=== PATIENT | female | born 1985 | race Caucasian/White ===

== ENCOUNTER → 2020-06-17 10:09 | Outpatient (BNVA) | payer BC, SELFPAY | PROVIDERS: Family Provider Family Medicine; PCP Family Medicine; Visit Provider Internal Medicine Rheumatology | DX: R76.8 Other specified abnormal immunological findings in serum (principal); I73.00 Raynaud's syndrome without gangrene; M19.90 Unspecified osteoarthritis, unspecified site; Z11.1 Encounter for screening for respiratory tuberculosis; Z11.59 Encounter for screening for other viral diseases; Z79.899 Other long term (current) drug therapy; Z87.891 Personal history of nicotine dependence | CPT/HCPCS: 99204 ==

== ENCOUNTER 2020-06-17 11:41 | Outpatient (CLI) | payer BC, SELFPAY ==
--- NOTE | 2020-06-17 11:56 | XR_ITS ---
WS: [id number] Exam: XR chest 2V* [id number] Date/Time of Exam: 06/17/2020 12:10 PM Reason For Exam: R76.8 - Other specified abnormal immunological findings in serum Comparison 08/31/2018. Findings: The lungs are clear and fully expanded. Costophrenic angles are sharp. No infiltrates. Bronchovascula r relief appears normal. Cardiac silhouette is unremarkable. Bony elements are intact. XR/XR chest 2V* [id number] IMPRESSION: Unremarkable chest radiograph.
--- NOTE | 2020-06-17 11:56 | XR_ITS ---
WS: [id number] Exam: XR foot LT min 3V* [id number] Date/Time of Exam: 06/17/2020 12:10 PM Reason For Exam: R76.8 - Other specified abnormal immunological findings in serum Findings: The foot was examined in multiple views and reveals no fractures or displacements of bone. No bony a nomalies are noted. The bony elements are in adequate alignment. The joint spaces are smooth and eq uidistant. XR/XR foot LT min 3V* [id number] IMPRESSION: Negative left foot.
--- NOTE | 2020-06-17 11:56 | XR_ITS ---
WS: [id number] Exam: XR foot RT min 3V* [id number] Date/Time of Exam: 06/17/2020 12:10 PM Reason For Exam: R76.8 - Other specified abnormal immunological findings in serum Findings: The foot was examined in multiple views and reveals no fractures or displacements of bone. No bony a nomalies are noted. The bony elements are in adequate alignment. The joint spaces are smooth and eq uidistant. XR/XR foot RT min 3V* [id number] IMPRESSION: Negative right foot.
--- NOTE | 2020-06-17 11:56 | XR_ITS ---
WS: [id number] Exam: XR hand LT min 3V* [id number] Date/Time of Exam: 06/17/2020 12:10 PM Reason For Exam: R76.8 - Other specified abnormal immunological findings in serum Exam: XR hand LT min 3V* [id number] Date/Time of Exam: 06/17/2020 12:10 PM Reason For Exam: R76.8 - Other specified abnormal immunological findings in serum Findings: No fractures, soft tissue swelling, or unusual calcifications are noted. The hand shows normal bony alignment. There is no irregularity of the bony architecture. XR/XR hand LT min 3V* [id number] IMPRESSION: Normal left hand.
--- NOTE | 2020-06-17 11:56 | XR_ITS ---
WS: [id number] Exam: XR hand RT min 3V* [id number] Date/Time of Exam: 06/17/2020 12:10 PM Reason For Exam: R76.8 - Other specified abnormal immunological findings in serum No fracture or dislocation. There is degenerative narrowing of the IP joints. Endosteal sclerosis not ed in the middle phalanx of the fourth finger. Normal soft tissues. XR/XR hand RT min 3V* [id number] IMPRESSION: 1. Degenerative narrowing of the IP joints and the first MP joint. 2. No fracture or other significant finding.
[2020-06-17 12:54] LABS: Basophils % 0.4 %; Eosinophils # 0.2 10^3/uL (0.0-0.8); Eosinophils % 2.1 %; Hematocrit 43.8 % (37.0-47.0); Hemoglobin 14.6 g/dL (11.5-15.3); Lymphocytes # 2.9 10^3/uL (0.8-4.8); Lymphocytes % 37.7 %; Mean Corpuscular HGB Conc 33.3 g/dL (30.0-36.0); Mean Platelet Volume 9.6 fL (7.4-10.4); Monocytes # 0.3 10^3/uL (0.2-0.9); Monocytes % 4.4 %; Neutrophils # 4.27 10^3/uL (1.8-7.7); Nucleated Red Blood Cells % 0 %; Platelet Count 305 10^3/cmm (130-400); Red Blood Count 4.71 10^6/uL (4.1-5.3); Red Cell Distribution Width 12.2 % (12.1-15.1); White Blood Count 7.8 10^3/uL (4.0-10.0)
[2020-06-17 13:31] LABS: 25 Hydroxy Vitamin D 24 ng/mL (30-100); Alanine Aminotransferase 9 U/L (0-33); Albumin Level 4.4 g/dL (3.5-5.2); Alkaline Phosphatase 89 IU/L (35-105); Aspartate Amino Transferase 16 U/L (0-32); Globulin 3.1 g/dL (1.3-4.6); Glomerular Filtration Rate 94.2 mL/min (90-130); Thyroid Stimulating Hormone 1.61 uIU/mL (0.27-4.20); Total Bilirubin 0.5 mg/dL (0.15-1.2); Total Protein 7.5 g/dL (6.6-8.7)
[2020-06-17 14:22] LABS: Bilirubin Urine Neg (Negative); Ketones Urine Negative (Negative); Urine Appearance Clear (CLEAR); Urine Color Yellow (Yellow); Urobilinogen Urine Norm (Negative)
[2020-06-17 14:30] LABS: Bacteria Urine TRACE /hpf; RBC Urine 0-4 /hpf (0-2)
[2020-06-17 14:33] LABS: Urine Creatinine 40 mg/dL (28-217); Urine Protein Random 4 mg/dL
[2020-06-17 14:39] LABS: Add Urine Culture? No; Blood Urine 2+ (Negative); Glucose Urine UA Norm (Normal); Leukocyte Esterase Urine Negative (Negative); Nitrate Urine Negative (Negative); Protein Urine Neg (Negative); pH Urine 5 (5-7)
[2020-06-17 15:06] LABS: Erythrocyte Sedimentation Rate 6 mm/hr (0-15)
[2020-06-17 15:29] LABS: Complement C3 123 mg/dL (90-180); Free T4 Free Thyroxine 1.58 ng/dL (0.82-1.77)
[2020-06-17 15:45] LABS: Hepatitis B Core AB, Total Non-Reactive (Nonreactive); Hepatitis B Surface Antigen Non-Reactive (Nonreactive); Hepatitis C Virus Antibody Non-Reactive (Nonreactive)
[2020-06-18 14:03] LABS: CENTROMERE B ANTIBODY <1.0 NEG AI (<1.0 NEG); JO-1 ANTIBODY <1.0 NEG AI (<1.0 NEG); RNP ANTIBODY <1.0 NEG AI (<1.0 NEG); SCL-70 ANTIBODY <1.0 NEG AI (<1.0 NEG); SJOGREN'S ANTIBODY (SS-A) <1.0 NEG AI (<1.0 NEG); SM ANTIBODY <1.0 NEG AI (<1.0 NEG); SS-B <1.0 NEG AI (<1.0 NEG)
[2020-06-18 14:34] LABS: COMPLEMENT, TOTAL (CH50) >60 U/mL (31-60)
[2020-06-18 14:48] LABS: COMPLEMENT COMPONENT C3C 127 mg/dL (83-193); COMPLEMENT COMPONENT C4C 26 mg/dL (15-57); THYROID PEROXIDASE ANTIBODIES <1 IU/mL (<9)
[2020-06-19 13:57] LABS: Quantiferon Mitogen >10.00 IU/mL; Quantiferon Nil 0.03 IU/mL; Quantiferon TB Gold NEGATIVE (NEGATIVE)
[2020-06-20 14:29] LABS: ANA PATTERN Nuclear, Speckled; ANA SCREEN, IFA POSITIVE (NEGATIVE); ANA TITER 1:40 titer
[2020-06-21 00:39] LABS: DNA AB (DS) CRITHIDIA,IFA NEGATIVE (NEGATIVE)
== END 2020-06-17 11:42 | disposition home or self-care (01) ==
LOC: LAB 11:49 → RAD 11:49
PROVIDERS: PCP Family Medicine; Visit Provider Internal Medicine Rheumatology
DX: R76.8 Other specified abnormal immunological findings in serum (principal); M19.90 Unspecified osteoarthritis, unspecified site; Z79.899 Other long term (current) drug therapy
CPT/HCPCS: 36415; 71046; 73130; 73630; 80076; 81001; 82306; 82565; 82570; 84156; 84439; 84443; 85025; 85651; 86140; 86160; 86431; 86480; 86704; 86803; 87340

== ENCOUNTER → 2020-07-30 12:55 | Outpatient (BNVA) | payer BC, SELFPAY | PROVIDERS: PCP Family Medicine; Visit Provider Internal Medicine Rheumatology | DX: R76.8 Other specified abnormal immunological findings in serum (principal); M19.90 Unspecified osteoarthritis, unspecified site; Z79.899 Other long term (current) drug therapy; I73.00 Raynaud's syndrome without gangrene; R63.5 Abnormal weight gain; Z68.29 Body mass index [BMI] 29.0-29.9, adult; Z87.891 Personal history of nicotine dependence | CPT/HCPCS: 99214 ==

== ENCOUNTER 2022-12-13 07:29 | Outpatient (CLI) | payer BC, SELFPAY ==
--- NOTE | 2022-12-13 07:45 | US_ITS ---
WS: [id number] THYROID ULTRASOUND HISTORY: thyroid mass COMPARISON: None available. Right lobe: 1.6 cm x 1.6 cm x 4.8 cm (w x ap x l). Volume: 6.4 cm3. Normal size and echotexture. No significant are dominant nodules are present. Left lobe: 1.6 cm x 0.9 cm x 4.4 cm (w x ap x l). Volume: 3.2 cm3. Normal size and echotexture. No significant or dominant nodules are present. Benign LEFT submandibular lymph node. Isthmus: 0.2 cm. US/US thyroid [id number] IMPRESSION: Normal thyroid ultrasound.
== END 2022-12-13 07:30 | disposition home or self-care (01) ==
PROVIDERS: PCP Family Medicine; Visit Provider Emergency Medicine
DX: E07.9 Disorder of thyroid, unspecified (principal)
CPT/HCPCS: 76536

== ENCOUNTER → 2023-02-15 10:11 | Outpatient (BNVA) | payer BC, SELFPAY | PROVIDERS: PCP Family Medicine; Visit Provider Family Medicine | DX: N89.8 Other specified noninflammatory disorders of vagina (principal); Z72.51 High risk heterosexual behavior; B37.9 Candidiasis, unspecified | CPT/HCPCS: 80053; 80061; 81000; 84439; 84443; 85025; 87491; 87591; 87806 ==

== ENCOUNTER 2023-12-03 16:58 | Emergency (ER) | payer BC, SELFPAY ==
[2023-12-03 17:07] VITALS: BP 117/83; PULSE 93; RESP 17; TEMP 37.1; O2SAT 98; BMI 32.9
--- NOTE | 2023-12-03 19:11 | USR_ITS ---
PROCEDURE INFORMATION: Exam: US Abdomen, Limited; Right Upper Quadrant Exam date and time: 12/03/2023 7:23 PM Age: 38 years old Clinical indication: Abdominal pain; Localized; Right upper quadrant TECHNIQUE: Imaging protocol: Real time ultrasound of the abdomen with image documentation. Limited exam focused on the right upper quadrant. COMPARISON: No relevant prior studies available. FINDINGS: Liver: Normal. No masses. Gallbladder: Normal. No gallstones. Gallbladder wall is upper limits of normal in thickness measuring 3 mm. No pericholecystic fluid collections are seen. Biliary ducts: Normal. No stones. No dilation. Pancreas: Visualized pancreas is unremarkable. Right kidney: Normal. No mass. No hydronephrosis. US/US gall bladder [id number] IMPRESSION: No acute findings.
--- NOTE | 2023-12-03 19:11 | ECG_ITS ---
[facility] Test Date: 2023-12-03 Pat Name: Tripp Villavicencio Department: Room: Gender: Female Community Health Counselor: : 1985 Requested By: Benitez Oleary Order Number: [id number] Steiner MD: Ky Colon M.D. Measurements Intervals [place] Rate: 73 P: 33 ME: 183 QRS: 77 QRSD: 86 T: 21 QT: 383 QTc: 422 Interpretive Statements SINUS RHYTHM WITH MARKED SINUS ARRHYTHMIA NONSPECIFIC T-WAVE ABNORMALITY No previous ECG available for comparison Electronically Signed On 12-04-2023 16:13:49 CDT by Ky Colon M.D. [id number]
--- NOTE | 2023-12-03 19:11 | XRR_ITS ---
PROCEDURE INFORMATION: Exam: XR Chest Exam date and time: 12/03/2023 7:37 PM Age: 38 years old Clinical indication: Shortness of breath; TECHNIQUE: Imaging protocol: Radiologic exam of the chest. Views: 1 view. COMPARISON: CR XR chest 2V* [id number] 06/17/2020 12:20 PM FINDINGS: Lungs: Unremarkable. No consolidation. Pleural spaces: Unremarkable. No pleural effusion. No pneumothorax. Heart/Mediastinum: Unremarkable. No cardiomegaly. Bones/joints: Unremarkable. XR/XR chest 1V portable [id number] IMPRESSION: No acute findings.
[2023-12-03 19:15] VITALS: BP 135/72; PULSE 85; O2SAT 99
[2023-12-03 19:19] LABS: Basophils % 0.4 %; Eosinophils # 0.2 10^3/uL (0.0-0.8); Eosinophils % 1.8 %; Hematocrit 43.6 % (36-47); Lymphocytes # 3.2 10^3/uL (0.8-4.8); Lymphocytes % 30.8 %; Mean Corpuscular HGB Conc 33.7 g/dL (30-55); Mean Corpuscular Hemoglobin 30.9 pg (27-33); Mean Corpuscular Volume 91.8 fl (85-98); Mean Platelet Volume 9.7 fL (7.4-10.4); Monocytes # 0.5 10^3/uL (0.2-0.9); Monocytes % 4.5 %; Neutrophils # 6.38 10^3/uL (1.8-7.7); Nucleated Red Blood Cells % 0 %; Platelet Count 297 10^3/cmm (157-399); Red Blood Count 4.75 10^6/uL (3.85-5.65); Red Cell Distribution Width 12.2 % (12.1-15.1); White Blood Count 10.27 10^3/uL (3.29-11.43)
--- NOTE | 2023-12-03 19:39 | ED_ITS ---
Documented by User: [email or web address] Pena 12/03/23 23:49 HPI - Abdominal Pain 2 General: Chief Complaint: Abdominal Pain Stated Complaint: abd pain Time Seen by Provider: 12/03/23 18:58 Source: patient Mode of arrival: ambulatory Limitations: no limitations History of Present Illness: Patient is a 2-year-old female presenting to the emergency department for evaluation of right upper quadrant abdominal pain over the past couple days. Patient states she was seated at her desk when pain began, and does radiate to her back and left upper quadrant. She has never had this pain before, states it is only relieved when she stands up. She has not taken anything for the pain as she states she does not like to take medications. She does report a history of rheumatoid arthritis, not currently on any Biologics. She does note some associated nausea but states she has not vomited. She denies any fever or chills. She additionally does not report any changes in bowel habits, stating her last bowel movement was yesterday and was normal. She is also reporting some shortness of breath. Pain currently at this time is rated to be a 7/10. No other symptoms or concerning historical factors reported. MD elicited complaint: abdominal pain Onset (ago): day(s) Pain Consistency: constant Location: RUQ Severity: moderate Radiation: LUQ and back Relieving factors: other (Standing) Associated Symptoms: Reports nausea; Denies bloating, change in stool character, chills, constipation, diarrhea, dysuria, fever(s), hematochezia and vomiting Review of Systems 2 General: Reports: 10 or more systems reviewed and unremarkable except in HPI and below Const: Denies: fever(s), chills, change in appetite, change in weight or diaphoresis ENMT: Denies: throat pain or hoarseness Card: Denies: chest pain, palpitations or lightheadedness Resp: Reports: dyspnea; Denies: productive cough or wheezing GI: Reports: abdominal pain and nausea; Denies: vomiting, diarrhea, constipation, bloating, change in stool character or hematochezia : Denies: flank pain, difficulty voiding, dysuria, urinary frequency or urinary urgency Musc: Reports: back pain; Denies: neck pain Skin/Breast: Denies: rash or new lesions Neuro: Denies: headache(s) or dizziness PFSH ED 2 PFSH: Medical History High risk medication use Raynaud's disease without gangrene Inflammatory arthritis Positive DEION (antinuclear antibody) Cervical dysplasia Surgical History History of tubal ligation Social History Smoking and tobacco/nicotine status: current every day tobacco/nicotine user cigarettes Packs smoked per day: 0.5 Years cigarettes smoked: 26 Quit status (tobacco/nicotine): has tried quititng Number of times tried to quit tobacco: 1 Second hand smoke exposure: No Alcohol intake: never Substance/Drug Use: never Lives independently: Yes Marital status: Number of children: 3 Current occupational status: employed Current occupation: [employer] Special wanda needs: No Agree to transfusion: Yes Physical Exam 2 Const: COMMON NORMALS: no acute distress, average body habitus, patient oriented x3, no limitations, healthy appearing, alert and well nourished G ENERAL APPEARANCE: cooperative and comfortable ORIENTATION/CONSCIOUSNESS: Yes awake HENMT: COMMON NORMALS: normocephalic, atraumatic, hearing grossly normal bilaterally, external ears normal, Normal external nose present, Normal nasal mucous membranes and turbinates present and moist oral mucous membranes HEAD & SCALP: normocephalic and atraumatic NOSE: Normal external nose present and Normal nasal mucous membranes and turbinates present EXTERNAL EAR: Yes external ears normal Eye: COMMON NORMALS: Equal, round and reactive pupils present, EOMs intact bilaterally, conjunctivae normal and normal visual michael by confrontation C ONJUNCTIVA: Yes conjunctivae normal PUPIL: Yes Equal, round and reactive pupils present Neck/C-Spine: COMMON NORMALS: full ROM, supple, no meningeal signs and no JVD Resp: COMMON NORMALS: normal respiratory effort, No retractions, No use of accessory muscles and clear to auscultation bilaterally AUSCULTATION: clear to auscultation bilaterally, no crackles, no rales, no rhonchi and no wheezes Cardio: COMMON NORMALS: no JVD, regular rate, regular rhythm, S1 normal heart sound present, S2 normal heart sound present, No gallops present (Cardio), No clicks present (Cardio), No murmurs present (Cardio), No rub (Cardio) and Peripheral pulses 2+ throughout RATE: regular rate RHYTHM: regular rhythm HEART SOUNDS: S1 normal heart sound present and S2 normal heart sound present PERIPHERAL PULSES: Peripheral pulses 2+ throughout GI: COMMON NORMALS: Normal to inspection, nondistended, normoactive bowel sounds present, Soft to palpation, No hepatosplenomegaly present and no masses AUSCULTATION: Yes normoactive bowel sounds PALPATION: Yes Soft to palpation, Yes Tenderness to palpation present (GI) Details: RUQ, No Guarding due to palpation present (GI), No Rigid due to palpation and Yes No hepatosplenomegaly present RECTAL EXAM: deferred : COMMON NORMALS: Yes no CVA tenderness BLADDER/KIDNEY EXAM: Yes no CVA tenderness Back/Pelvis: COMMON NORMALS: no CVA tenderness Extremity: COMMON NORMALS: normal to inspection and full ROM Neuro: COMMON NORMALS: patient oriented x3, moves all extremities, no focal motor deficits and no sensory deficits noted SENSORIUM/ORIENTATION: Yes alert MENINGEAL SIGNS: Yes no meningeal signs Psych: COMMON NORMALS: mental status grossly normal, cooperative and speech normal SPEECH: Yes normal speech Skin: COMMON NORMALS: no rashes or lesions noted GENERAL SKIN EXAM: no rashes or lesions noted Course 2 Vital Signs: Vital signs: Vital Signs Temperature 98.7 F 12/03/23 17:07 Pulse Rate 85 12/03/23 20:45 Respiratory Rate 17 12/03/23 20:45 Blood Pressure 134/82 12/03/23 20:45 Pulse Oximetry 97 12/03/23 20:45 Oxygen Delivery Me thod Room Air 12/03/23 20:45 MDM - Abdominal Pain Medical Decision Making Patient presented with right upper quadrant pain over the past few days, extending to the back and left upper quadrant. No history of issues with the gallbladder, no previous surgical history with the abdomen other than having her tubes tied. Was noting some shortness of breath as well along with nausea and vomiting. Her blood work was all unremarkable, including negative CBC, CMP, , and urinalysis. Initial ultrasound was obtained did not demonstrate any findings concerning the gallbladder. Additionally chest x-ray and EKG were obtained for her shortness of breath, both of which were negative. Her EKG showed sinus rhythm rate [address] segment changes. CT abdomen pelvis was obtained to further evaluate for her pain, this was also negative. She denied any medicines for pain or nausea, she states she does not like taking medicines. She does have a history of rheumatoid arthritis, and potential etiology may include an autoimmune process versus abdominal wall strain versus abdominal contusion. Because of his negative workup I will point her towards primary care for further outpatient management. She does note that her pain is improved simply during her ED stay. Vitals have remained normal throughout the ED course and I have no concern for an acute abdomen at this time. Patient will be discharged home with strict return precautions. Lab Data 12/03/23 19:10 12/03/23 19:10 Labs/Radiology: Radiology Impressions Chest X-Ray 12/03/23 19:11 IMPRESSION: No acute findings. Gallbladder Ultrasound 12/03/23 19:11 IMPRESSION: No acute findings. Abdomen/Pelvis CT 12/03/23 19:46 IMPRESSION: No acute findings. Laboratory Results WBC 10.27 10^3/uL (3.29-11.43) 12/03/23 19:10 RBC 4.75 10^6/uL (3.85-5.65) 12/03/23 19:10 Hgb 14.70 g/dL (11.27-16.99) 12/03/23 19:10 Hct 43.6 % (36-47) 12/03/23 19:10 MCV 91.8 fl (85-98) 12/03/23 19:10 MCH 30.9 pg (27-33) 12/03/23 19:10 MCHC 33.7 g/dL (30-55) 12/03/23 19:10 RDW 12.2 % (12.1-15.1) 12/03/23 19:10 Plt Count 297 10^3/cmm (157-399) 12/03/23 19:10 MPV 9.7 fL (7.4-10.4) 12/03/23 19:10 Neut % (Auto) 62.0 % 12/03/23 19:10 Lymph % (Auto) 30.8 % 12/03/23 19:10 [place] % (Auto) 4.5 % 12/03/23 19:10 Eos % (Auto) 1.8 % 12/03/23 19:10 Baso % (Auto) 0.4 % 12/03/23 19:10 Neut # (Auto) 6.38 10^3/uL (1.8-7.7) 12/03/23 19:10 Lymph # (Auto) 3.2 10^3/uL (0.8-4.8) 12/03/23 19:10 [place] # (Auto) 0.5 10^3/uL (0.2-0.9) 12/03/23 19:10 Eos # (Auto) 0.2 10^3/uL (0.0-0.8) 12/03/23 19:10 Baso # (Auto) 0.0 10^3/uL (0.0-0.1) 12/03/23 19:10 Nucleated RBC % (auto) 0 % 12/03/23 19:10 Nucleated RBCs # 0.0 /100WBC 12/03/23 19:10 Sodium 138 mmol/L (136-145) 12/03/23 19:10 Potassium 3.9 mmol/L (3.5-5.1) 12/03/23 19:10 Chloride 103 mmol/L (98-107) 12/03/23 19:10 Carbon Dioxide 25 mmol/L (22-29) 12/03/23 19:10 Anion Gap 13.9 (5-19) 12/03/23 19:10 BUN 10 mg/dL (6-20) 12/03/23 19:10 Creatinine 0.8 mg/dL (0.5-0.9) 12/03/23 19:10 GFR Calculation 79.4 mL/min (90-130) L 12/03/23 19:10 Glucose 89 mg/dL (65-115) 12/03/23 19:10 Calculated Osmolality 285 mOsm/kg (285-295) 12/03/23 19:10 Calcium 8.8 mg/dL (8.5-10.5) 12/03/23 19:10 Total Bilirubin 0.2 mg/dL (0.15-1.2) 12/03/23 19:10 AST 17 U/L (0-32) 12/03/23 19:10 ALT 16 U/L (0-33) 12/03/23 19:10 Alkaline Phosphatase 107 U/L (35-105) H 12/03/23 19:10 Total Protein 7.2 g/dL (6.6-8.7) 12/03/23 19:10 Albumin 4.3 g/dL (3.5-5.2) 12/03/23 19:10 Globulin 2.9 g/dL (1.3-4.6) 12/03/23 19:10 Lipase 18 U/L (13-60) 12/03/23 19:10 HCG, Qual Negative (Negative) 12/03/23 19:10 Urine Color Yellow (Yellow) 12/03/23 18:56 Urine Appearance Clear (CLEAR) 12/03/23 18:56 Urine pH 7 (5-7) 12/03/23 18:56 Ur Specific [place] 1.000 (1.005-1.030) L 12/03/23 18:56 Urine Protein Neg (Negative) 12/03/23 18:56 Urine Glucose (UA) Norm (Normal) 12/03/23 18:56 Urine Ketones Negative (Negative) 12/03/23 18:56 Urine Blood Trace (Negative) H 12/03/23 18:56 Urine Nitrate Negative (Negative) 12/03/23 18:56 Urine Bilirubin Neg (Negative) 12/03/23 18:56 Urine Urobilinogen Neg mg/dL (Negative) 12/03/23 18:56 Ur Leukocyte Esterase Negative (Negative) 12/03/23 18:56 Urine RBC 0-4 /hpf (0-2) H 12/03/23 18:56 Urine WBC 0-4 /hpf (0-5) H 12/03/23 18:56 Ur Squamous Epith Cells 5-10 /hpf (0-5) H 12/03/23 18:56 Amorphous Sediment Not Reportable 12/03/23 18:56 Urine Bacteria 2+ /hpf (NONE) H 12/03/23 18:56 All radiology interpretation(s) finalized by discharge Discharge Plan Discharge Patient Disposition: Home Clinical Impression: Right upper quadrant abdominal pain Condition: Stable Prescriptions: No Action famotidine [Pepcid] 40 mg tablet 40 mg PO BID Qty: 60 0RF fluconazole 150 mg tablet 150 mg PO Q3D Qty: 2 0RF Rx Instructions: take one tablet now, next tablet in 72hrs metronidazole 500 mg tablet 500 mg PO BID 7 Days Qty: 14 0RF Discharge Orders: Discharge ED (Routine); Ordered 12/03/23 Ordered By: Benitez Hernandez Discharge Diet: Usual diet Discharge Activity: Increase activity as tolerated Patient Instructions: Abdominal Pain (ED), Opioid Safety, Pain Management Activity Restrictions/Additional Instructions: Please follow-up with primary care as discussed for further evaluation. Take Tylenol and ibuprofen at home for any pain. Return if you develop any new or concerning symptoms or other signs of illness. Coding Level of Care Code ED Regulatory Agency Director for Chg Fwd Documented by User: Willard Person DO 12/04/23 04:31 HPI - Abdominal Pain 2 General: Chief Complaint: Abdominal Pain Stated Complaint: abd pain Time Seen by Provider: 12/03/23 18:58 PFSH ED 2 PFSH: Medical History High risk medication use Raynaud's disease without gangrene Inflammatory arthritis Positive DEION (antinuclear antibody) Cervical dysplasia Surgical History History of tubal ligation Social History Smoking and tobacco/nicotine status: current every day tobacco/nicotine user cigarettes Packs smoked per day: 0.5 Years cigarettes smoked: 26 Quit status (tobacco/nicotine): has tried quititng Number of times tried to quit tobacco: 1 Second hand smoke exposure: No Alcohol intake: never Substance/Drug Use: never Lives independently: Yes Marital status: Number of children: 3 Current occupational status: employed Current occupation: [employer] Special wanda needs: No Agree to transfusion: Yes Course 2 Vital Signs: Vital signs: Vital Signs Temperature 98.7 F 12/03/23 17:07 Pulse Rate 85 12/03/23 20:45 Respiratory Rate 17 12/03/23 20:45 Blood Pressure 134/82 12/03/23 20:45 Pulse Oximetry 97 12/03/23 20:45 Oxygen Delivery Me thod Room Air 12/03/23 20:45 MDM - Abdominal Pain Medical Decision Making Patient presented with right upper quadrant pain over the past few days, extending to the back and left upper quadrant. No history of issues with the gallbladder, no previous surgical history with the abdomen other than having her tubes tied. Was noting some shortness of breath as well along with nausea and vomiting. Her blood work was all unremarkable, including negative CBC, CMP, , and urinalysis. Initial ultrasound was obtained did not demonstrate any findings concerning the gallbladder. Additionally chest x-ray and EKG were obtained for her shortness of breath, both of which were negative. Her EKG showed sinus rhythm rate [address] segment changes. CT abdomen pelvis was obtained to further evaluate for her pain, this was also negative. She denied any medicines for pain or nausea, she states she does not like taking medicines. She does have a history of rheumatoid arthritis, and potential etiology may include an autoimmune process versus abdominal wall strain versus abdominal contusion. Because of his negative workup I will point her towards primary care for further outpatient management. She does note that her pain is improved simply during her ED stay. Vitals have remained normal throughout the ED course and I have no concern for an acute abdomen at this time. Patient will be discharged home with strict return precautions. This patient was originally seen by Mr. David PA-C.? I agree with his history, evaluation, and treatment. Lab Data 12/03/23 19:10 12/03/23 19:10 Labs/Radiology: Radiology Impressions Chest X-Ray 12/03/23 19:11 IMPRESSION: No acute findings. Gallbladder Ultrasound 12/03/23 19:11 IMPRESSION: No acute findings. Abdomen/Pelvis CT 12/03/23 19:46 IMPRESSION: No acute findings. Laboratory Results WBC 10.27 10^3/uL (3.29-11.43) 12/03/23 19:10 RBC 4.75 10^6/uL (3.85-5.65) 12/03/23 19:10 Hgb 14.70 g/dL (11.27-16.99) 12/03/23 19:10 Hct 43.6 % (36-47) 12/03/23 19:10 MCV 91.8 fl (85-98) 12/03/23 19:10 MCH 30.9 pg (27-33) 12/03/23 19:10 MCHC 33.7 g/dL (30-55) 12/03/23 19:10 RDW 12.2 % (12.1-15.1) 12/03/23 19:10 Plt Count 297 10^3/cmm (157-399) 12/03/23 19:10 MPV 9.7 fL (7.4-10.4) 12/03/23 19:10 Neut % (Auto) 62.0 % 12/03/23 19:10 Lymph % (Auto) 30.8 % 12/03/23 19:10 [place] % (Auto) 4.5 % 12/03/23 19:10 Eos % (Auto) 1.8 % 12/03/23 19:10 Baso % (Auto) 0.4 % 12/03/23 19:10 Neut # (Auto) 6.38 10^3/uL (1.8-7.7) 12/03/23 19:10 Lymph # (Auto) 3.2 10^3/uL (0.8-4.8) 12/03/23 19:10 [place] # (Auto) 0.5 10^3/uL (0.2-0.9) 12/03/23 19:10 Eos # (Auto) 0.2 10^3/uL (0.0-0.8) 12/03/23 19:10 Baso # (Auto) 0.0 10^3/uL (0.0-0.1) 12/03/23 19:10 Nucleated RBC % (auto) 0 % 12/03/23 19:10 Nucleated RBCs # 0.0 /100WBC 12/03/23 19:10 Sodium 138 mmol/L (136-145) 12/03/23 19:10 Potassium 3.9 mmol/L (3.5-5.1) 12/03/23 19:10 Chloride 103 mmol/L (98-107) 12/03/23 19:10 Carbon Dioxide 25 mmol/L (22-29) 12/03/23 19:10 Anion Gap 13.9 (5-19) 12/03/23 19:10 BUN 10 mg/dL (6-20) 12/03/23 19:10 Creatinine 0.8 mg/dL (0.5-0.9) 12/03/23 19:10 GFR Calculation 79.4 mL/min (90-130) L 12/03/23 19:10 Glucose 89 mg/dL (65-115) 12/03/23 19:10 Calculated Osmolality 285 mOsm/kg (285-295) 12/03/23 19:10 Calcium 8.8 mg/dL (8.5-10.5) 12/03/23 19:10 Total Bilirubin 0.2 mg/dL (0.15-1.2) 12/03/23 19:10 AST 17 U/L (0-32) 12/03/23 19:10 ALT 16 U/L (0-33) 12/03/23 19:10 Alkaline Phosphatase 107 U/L (35-105) H 12/03/23 19:10 Total Protein 7.2 g/dL (6.6-8.7) 12/03/23 19:10 Albumin 4.3 g/dL (3.5-5.2) 12/03/23 19:10 Globulin 2.9 g/dL (1.3-4.6) 12/03/23 19:10 Lipase 18 U/L (13-60) 12/03/23 19:10 HCG, Qual Negative (Negative) 12/03/23 19:10 Urine Color Yellow (Yellow) 12/03/23 18:56 Urine Appearance Clear (CLEAR) 12/03/23 18:56 Urine pH 7 (5-7) 12/03/23 18:56 Ur Specific [place] 1.000 (1.005-1.030) L 12/03/23 18:56 Urine Protein Neg (Negative) 12/03/23 18:56 Urine Glucose (UA) Norm (Normal) 12/03/23 18:56 Urine Ketones Negative (Negative) 12/03/23 18:56 Urine Blood Trace (Negative) H 12/03/23 18:56 Urine Nitrate Negative (Negative) 12/03/23 18:56 Urine Bilirubin Neg (Negative) 12/03/23 18:56 Urine Urobilinogen Neg mg/dL (Negative) 12/03/23 18:56 Ur Leukocyte Esterase Negative (Negative) 12/03/23 18:56 Urine RBC 0-4 /hpf (0-2) H 12/03/23 18:56 Urine WBC 0-4 /hpf (0-5) H 12/03/23 18:56 Ur Squamous Epith Cells 5-10 /hpf (0-5) H 12/03/23 18:56 Amorphous Sediment Not Reportable 12/03/23 18:56 Urine Bacteria 2+ /hpf (NONE) H 12/03/23 18:56 Discharge Plan Discharge Patient Disposition: Home Clinical Impression: Right upper quadrant abdominal pain Condition: Stable Prescriptions: No Action famotidine [Pepcid] 40 mg tablet 40 mg PO BID Qty: 60 0RF fluconazole 150 mg tablet 150 mg PO Q3D Qty: 2 0RF Rx Instructions: take one tablet now, next tablet in 72hrs metronidazole 500 mg tablet 500 mg PO BID 7 Days Qty: 14 0RF Discharge Orders: Discharge ED (Routine); Ordered 12/03/23 Ordered By: Benitez Hernandez Discharge Diet: Usual diet Discharge Activity: Increase activity as tolerated Patient Instructions: Abdominal Pain (ED), Opioid Safety, Pain Management Activity Restrictions/Additional Instructions: Please follow-up with primary care as discussed for further evaluation. Take Tylenol and ibuprofen at home for any pain. Return if you develop any new or concerning symptoms or other signs of illness. Coding Level of Care Code ED Regulatory Agency Director for Brent Zapata
[2023-12-03 19:43] LABS: Alanine Aminotransferase 16 U/L (0-33); Albumin Level 4.3 g/dL (3.5-5.2); Alkaline Phosphatase 107 U/L (35-105); Anion Gap 13.9 (5-19); Aspartate Amino Transferase 17 U/L (0-32); Blood Urea Nitrogen 10 mg/dL (6-20); Calcium 8.8 mg/dL (8.5-10.5); Carbon Dioxide 25 mmol/L (22-29); Chloride 103 mmol/L (98-107); Creatinine Clr Calc Pharmacy 96.1964; Globulin 2.9 g/dL (1.3-4.6); Glomerular Filtration Rate 79.4 mL/min (90-130); Glucose 89 mg/dL (65-115); Lipase 18 U/L (13-60); Osmolality Calculated 285 mOsm/kg (285-295); Potassium 3.9 mmol/L (3.5-5.1); Sodium 138 mmol/L (136-145); Total Bilirubin 0.2 mg/dL (0.15-1.2); Total Protein 7.2 g/dL (6.6-8.7)
[2023-12-03 19:44] LABS: Add Urine Microscopic? YES; Bacteria Urine 2+ /hpf; Bilirubin Urine Neg (Negative); Blood Urine Trace (Negative); Glucose Urine UA Norm (Normal); Ketones Urine Negative (Negative); Leukocyte Esterase Urine Negative (Negative); Nitrate Urine Negative (Negative); Protein Urine Neg (Negative); RBC Urine 0-4 /hpf (0-2); Urine Appearance Clear (CLEAR); Urine Color Yellow (Yellow); Urobilinogen Urine Neg (Negative); WBC Urine 0-4 /hpf (0-5); pH Urine 7 (5-7)
[2023-12-03 19:44] LABS: HCG, Serum Qual Negative (Negative)
--- NOTE | 2023-12-03 19:46 | CTR_ITS ---
PROCEDURE INFORMATION: Exam: CT Abdomen And Pelvis With Contrast Exam date and time: 12/03/2023 7:53 PM Age: 38 years old Clinical indication: Abdominal pain; Localized; Right upper quadrant (ruq); Prior surgery; Surgery date: 6+ months; Surgery type: Tubal; Patient HX: C/O ruq pain; Additional info: Ruq pain/neg US TECHNIQUE: Imaging protocol: Computed tomography of the abdomen and pelvis with contrast. Radiation optimization: All CT scans at this facility use at least one of these dose optimization techniques: automated exposure control; mA and/or kV adjustment per patient size (includes targeted exams where dose is matched to clinical indication); or iterative reconstruction. Contrast material: OMNI 350; Contrast volume: 100 ml; Contrast route: INTRAVENOUS (IV); COMPARISON: US gall bladder [id number] 12/03/2023 7:23 PM RADIATION DOSE METRICS: Total DLP (mGy-cm): 802.41 FINDINGS: Diaphragm: Small hiatal hernia. Liver: Normal. No mass. Gallbladder and biliary ducts: Normal. No calcified stones. No ductal dilation. Pancreas: Normal. No ductal dilation. Spleen: Normal. No splenomegaly. Adrenal glands: Normal. No mass. Kidneys and ureters: Normal. No hydronephrosis. Stomach and bowel: There is diverticulosis of the colon without evidence of diverticulitis. Appendix: A normal appendix is identified. Intraperitoneal space: There is a physiologic amount of free fluid in the pelvis. Vasculature: Unremarkable. No abdominal aortic aneurysm. Lymph nodes: Unremarkable. No enlarged lymph nodes. Urinary bladder: Unremarkable as visualized. Reproductive: Bilateral ovarian follicles. Bones/joints: Unremarkable. No acute fracture. Soft tissues: Unremarkable. CT/CT abdomen pelvis w con* [id number] IMPRESSION: No acute findings.
[2023-12-03] MEDS: iohexol 350 mg/mL 500 mL Btl (per mL) IV (19:55)
[2023-12-03 20:00] VITALS: BP 128/74; PULSE 86; O2SAT 97
[2023-12-03 20:45] VITALS: BP 134/82; PULSE 85; RESP 17; O2SAT 97
== END 2023-12-03 20:48 | disposition home or self-care (01) ==
PROVIDERS: Emergency Provider Physician Assistant
DX: R10.11 Right upper quadrant pain (principal); F17.210 Nicotine dependence, cigarettes, uncomplicated
CPT/HCPCS: 71045; 74177; 76705; 80053; 81001; 83690; 84703; 85025; 93005; 99285; Q9967

== ENCOUNTER → 2024-11-15 08:29 | Outpatient (BNVA) | payer BC, SELFPAY | DX: F41.1 Generalized anxiety disorder (principal) | CPT/HCPCS: 80053; 84443; 85025 ==

== ENCOUNTER 2025-03-25 20:02 | Emergency (ER) | payer BC, SELFPAY ==
--- NOTE | 2025-03-25 20:08 | ECG_ITS ---
[facility] Test Date: 2025-03-25 Pat Name: Tripp Villavicencio Department: Room: Gender: Female It Systems Administrator: : 1985 Requested By: Ashley Manzo Order Number: [id number] Obdulia MD: Shannan Torres M.D. Measurements Intervals [place] Rate: 80 P: 60 KS: 201 QRS: 52 QRSD: 83 T: 41 QT: 357 QTc: 412 Interpretive Statements SINUS RHYTHM WITH SINUS ARRHYTHMIA NONSPECIFIC T-WAVE ABNORMALITY Compared to ECG 12/03/2023 19:49:57 No significant changes Electronically Signed On 03-26-2025 22:04:21 AUDIT INTERN by Shannan Torres M.D. [email or web address]
--- OUTSIDE RECORDS SUMMARY | 2025-03-25 20:09 | XMS_ITS | Encounter Summary ---
Author Organization [facility] Address [address] [place] [address] Care Team Providers Care Experimental Electronics Developer Name Role Phone Arun Beltrán MD Primary Care Provider +1 -[phone] Encounter Details Date Type Department Care Team (Latest Contact Info) Description 12/31/1999 [facility] [place] [address] [phone] Christina Mcintyre NO ADDRESS ON FILE Sleep disturbance, unspecified (Primary Dx) Social History Tobacco Use Types Packs/Day Years Used Date Smoking Tobacco: Never Assessed Comments Unknown Sex and Gender Information Value Date Recorded Sex Assigned at Not on file 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
--- OUTSIDE RECORDS SUMMARY | 2025-03-25 20:09 | XMS_ITS | Encounter Summary ---
Author Organization [facility] Address [address] [place] [address] Care Team Providers Care Clinical Services Professional Name Role Phone Arun Beltrán MD Primary Care Provider +1 -[phone] Encounter Details Date Type Department Care Team (Latest Contact Info) Description 11/21/2001 Outpatient Historical [facility] Medicine [place] [address] [address] Yannick Coleman DO NO ADDRESS ON FILE ACUTE PHARYNGITIS (Primary Dx) Social History Tobacco Use Types Packs/Day Years Used Date Smoking Tobacco: Never Assessed Comments Unknown Sex and Gender Information Value Date Recorded Sex Assigned at Not on file Legal Sex Female 5:[address] SUPERVISOR OF ENGINES Gender Identity Not on file Sexual Orientation Not on file documented as of this encounter Plan of Treatment Not on file documented as of this encounter Visit Diagnoses Diagnosis Acute pharyngitis- Primary documented in this encounter Care Teams Clinical Services Professional Relationship Specialty Start Date End Date Arun Beltrán MD [address] [phone] PCP - General Family Practice 04/28/18 documented as of this encounter
--- OUTSIDE RECORDS SUMMARY | 2025-03-25 20:09 | XMS_ITS | Encounter Summary ---
Author Organization [facility] Address [address] [place] [address] Care Team Providers Care Pipefitter Welder Name Role Phone Arun Beltrán MD Primary Care Provider +1 -[phone] Encounter Details Date Type Department Care Team (Latest Contact Info) Description 11/26/1999 Outpatient Historical [facility] Medicine [place] [address] [address] Christina Mcintyre NO ADDRESS ON FILE Other specified hypoglycemia (Primary Dx); Other specified anemias; Other malaise and fatigue Social History Tobacco Use Types Packs/Day Years Used Date Smoking Tobacco: Never Assessed Comments Unknown Sex and Gender Information Value Date Recorded Sex Assigned at Not on file 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
--- OUTSIDE RECORDS SUMMARY | 2025-03-25 20:09 | XMS_ITS | Encounter Summary ---
Author Organization [facility] Address [address] [place] [address] Care Team Providers Care Customer Complaint Service Supervisor Name Role Phone Arun Beltrán MD Primary Care Provider +1 [phone] Encounter Details Date Type Department Care Team (Latest Contact Info) Description 06/28/[address] 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
--- OUTSIDE RECORDS SUMMARY | 2025-03-25 20:09 | XMS_ITS | Encounter Summary ---
Author Organization [facility] Address [address] [place] [address] Care Team Providers Care Lead Supply Worker Name Role Phone Arun Beltrán MD Primary Care Provider +1 -[phone] Encounter Details Date Type Department Care Team (Latest Contact Info) Description 11/27/2002 Outpatient Historical [facility] Medicine- [address] [address] Peter Watson MD [address] [phone] SUPERVIS OTHER NORMAL PREG (Primary Dx) Social History Tobacco Use Types Packs/Day Years Used Date Smoking Tobacco: Never Assessed Comments Unknown Sex and Gender Information Value Date Recorded Sex Assigned at Not on file 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
--- OUTSIDE RECORDS SUMMARY | 2025-03-25 20:09 | XMS_ITS | Encounter Summary ---
Author Organization [facility] Address [address] [place] [address] Care Team Providers Care Etcher Aircraft Name Role Phone Arun Beltrán MD Primary Care Provider +1 -[phone] Encounter Details Date Type Department Care Team (Latest Contact Info) Description 11/21/2002 Outpatient Historical [facility] [address] [address] Peter Watson MD [address] [phone] ESOPHAGEAL REFLUX (Primary Dx); HEMATEMESIS Social History Tobacco Use Types Packs/Day Years Used Date Smoking Tobacco: Never Assessed Comments Unknown Sex and Gender Information Value Date Recorded Sex Assigned at Not on file 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
--- OUTSIDE RECORDS SUMMARY | 2025-03-25 20:09 | XMS_ITS | Encounter Summary ---
Author Organization [facility] Address [address] [place] [address] Care Team Providers Care Supervisor Molding Name Role Phone Arun Beltrán MD Primary Care Provider +1 -[phone] Encounter Details Date Type Department Care Team (Latest Contact Info) Description 12/12/2002 Outpatient Historical [facility] Medicine- [address] [address] Peter Watson MD [address] [phone] SUPERVIS OTHER NORMAL PREG (Primary Dx) Social History Tobacco Use Types Packs/Day Years Used Date Smoking Tobacco: Never Assessed Comments Unknown Sex and Gender Information Value Date Recorded Sex Assigned at Not on file 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
--- OUTSIDE RECORDS SUMMARY | 2025-03-25 20:09 | XMS_ITS | Encounter Summary ---
Author Organization [facility] Address [address] [place] [address] Care Team Providers Care Deputy Director Of Finance Name Role Phone Arun Beltrán MD Primary Care Provider +1 -[phone] Encounter Details Date Type Department Care Team (Latest Contact Info) Description 05/05/1999 Outpatient Historical [facility] Medicine [place] [address] [address] Yannick Coleman DO NO ADDRESS ON FILE Dysfunct eustachian tube (Primary Dx); Acute pharyngitis; Allergic rhinitis, cause unspecified Social History Tobacco Use Types Packs/Day Years Used Date Smoking Tobacco: Never Assessed Comments Unknown Sex and Gender Information Value Date Recorded Sex Assigned at Not on file 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
--- OUTSIDE RECORDS SUMMARY | 2025-03-25 20:09 | XMS_ITS | Encounter Summary ---
Author Organization [facility] Address [address] [place] [address] Care Team Providers Care Animal Sitter Name Role Phone Arun Beltrán MD Primary Care Provider +1 -[phone] Encounter Details Date Type Department Care Team (Latest Contact Info) Description 05/08/2003 Outpatient Historical [facility] Medicine- [address] [address] Peter Watson MD [address] [phone] CONTRACEPT SURVEILL NEC (Primary Dx) Social History Tobacco Use Types Packs/Day Years Used Date Smoking Tobacco: Never Assessed Comments Unknown Sex and Gender Information Value Date Recorded Sex Assigned at Not on file 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
--- OUTSIDE RECORDS SUMMARY | 2025-03-25 20:09 | XMS_ITS | Encounter Summary ---
Author Organization [facility] Address [address] [place] [address] Care Team Providers Care Primer Boxer Name Role Phone Arun Beltrán MD Primary Care Provider +1 -[phone] Encounter Details Date Type Department Care Team (Latest Contact Info) Description 07/25/2003 Outpatient Historical [facility] Medicine- [address] [phone] Mervat Sandy MD [address] [place] [phone] SCREENING MAL NEOP-VAGINA (Primary Dx) Social History Tobacco Use Types Packs/Day Years Used Date Smoking Tobacco: Never Assessed Comments Unknown Sex and Gender Information Value Date Recorded Sex Assigned at Not on file 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
--- OUTSIDE RECORDS SUMMARY | 2025-03-25 20:09 | XMS_ITS | Encounter Summary ---
Author Organization [facility] Address [address] [place] [address] Care Team Providers Care Tire Regrooving Machine Operator Name Role Phone Arun Beltrán MD Primary Care Provider [phone] Encounter Details Date Type Department Care Team (Latest Contact Info) Description 03/25/2000 Outpatient Historical [facility] Medicine [place] [address] [address] Jerad Rizzo MD [address] [phone] Other specified anemias (Primary Dx); Gynecologic examination; Vaginitis and vulvovaginitis, unspecified Social History Tobacco Use Types Packs/Day Years Used Date Smoking Tobacco: Never Assessed Comments Unknown Sex and Gender Information Value Date Recorded Sex Assigned at Not on file 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
--- OUTSIDE RECORDS SUMMARY | 2025-03-25 20:09 | XMS_ITS | Encounter Summary ---
Author Organization [facility] Address [address] [place] [address] Care Team Providers Care Gate Technician Name Role Phone Arun Beltrán MD Primary Care Provider +1 -[phone] Encounter Details Date Type Department Care Team (Latest Contact Info) Description 09/09/2003 Outpatient Historical [facility] Medicine- [address] [address] Mervat [place] MD [address] [place] [phone] CONTRACEPTIVE MANGMT NEC (Primary Dx) Social History Tobacco Use Types Packs/Day Years Used Date Smoking Tobacco: Never Assessed Comments Unknown Sex and Gender Information Value Date Recorded Sex Assigned at Not on file 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
--- OUTSIDE RECORDS SUMMARY | 2025-03-25 20:09 | XMS_ITS | Encounter Summary ---
Author Organization [facility] Address [address] [place] [address] Care Team Providers Care Cardiac Care Nurse Name Role Phone Arun Beltrán MD Primary Care Provider +1 -[phone] Encounter Details Date Type Department Care Team (Latest Contact Info) Description 01/10/2003 Outpatient Historical [facility] Medicine- [address] [address] Peter Watson MD [address] [phone] SUPERVIS OTHER NORMAL PREG (Primary Dx) Social History Tobacco Use Types Packs/Day Years Used Date Smoking Tobacco: Never Assessed Comments Unknown Sex and Gender Information Value Date Recorded Sex Assigned at Not on file 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
--- OUTSIDE RECORDS SUMMARY | 2025-03-25 20:09 | XMS_ITS | Encounter Summary ---
Author Organization [facility] Address [address] [place] [address] Care Team Providers Care Electronic Resources Librarian Name Role Phone Arun Beltrán MD Primary Care Provider + -[phone] Encounter Details Date Type Department Care Team (Late st Contact Info) Description 07/12/2006 Emergency [facility] [address] 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
--- OUTSIDE RECORDS SUMMARY | 2025-03-25 20:09 | XMS_ITS | Encounter Summary ---
Author Organization [facility] Address [address] [place] [address] Care Team Providers Care Abrasive Grader Helper Name Role Phone Arun Beltrán MD Primary Care Provider +1 -[phone] Encounter Details Date Type Department Care Team (Latest Contact Info) Description 02/07/2003 Outpatient Historical [facility] Medicine[address] [address] Ana Rosa rGimm MD [address] [place] [address] SUPERVIS OTHER NORMAL PREG (Primary Dx) Social History Tobacco Use Types Packs/Day Years Used Date Smoking Tobacco: Never Assessed Comments Unknown Sex and Gender Information Value Date Recorded Sex Assigned at Not on file Legal Sex Female 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
--- OUTSIDE RECORDS SUMMARY | 2025-03-25 20:09 | XMS_ITS | Encounter Summary ---
Author Organization [facility] Address [address] [place] [address] Care Team Providers Care Horse Buyer Name Role Phone Arun Beltrán MD Primary Care Provider +1 -[phone] Encounter Details Date Type Department Care Team (Latest Contact Info) Description 01/30/2003 Outpatient Historical [facility] Medicine- [address] [address] Ana Rosa Grimm MD [address] [place] [phone] SUPERVIS OTHER NORMAL PREG (Primary Dx) Social History Tobacco Use Types Packs/Day Years Used Date Smoking Tobacco: Never Assessed Comments Unknown Sex and Gender Information Value Date Recorded Sex Assigned at Not on file Legal Sex Female 5:32 AM SURVEILLANCE DUAL RATE OFFICER Gender Identity Not on file Sexual Orientation Not on file documented as of this encounter Plan of Treatment Not on file documented as of this encounter Visit Diagnoses Diagnosis Supervision of other normal - Primary documented in this encounter Care Teams Horse Buyer Relationship Specialty Start Date End Date Arun Beltrán MD [address] [facility] [address] [place] [address] PCP - General Family Practice 04/28/18 documented as of this encounter
--- OUTSIDE RECORDS SUMMARY | 2025-03-25 20:09 | XMS_ITS | Encounter Summary ---
Author Organization [facility] Address [address] [place] [address] Care Team Providers Care Forestry Consultant Name Role Phone Arun Beltrán MD Primary Care Provider +1 -[phone] Encounter Details Date Type Department Care Team (Latest Contact Info) Description 09/30/2003 Outpatient Historical [facility] Medicine- [address] [address] Mervat Sandy MD [address] [place] [phone] SUPERVIS OTHER NORMAL PREG (Primary Dx) Social History Tobacco Use Types Packs/Day Years Used Date Smoking Tobacco: Never Assessed Comments Unknown Sex and Gender Information Value Date Recorded Sex Assigned at Not on file Legal Sex Female 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
--- OUTSIDE RECORDS SUMMARY | 2025-03-25 20:09 | XMS_ITS | Encounter Summary ---
Author Organization [facility] Address [address] [place] [address] Care Team Providers Care Fortune Teller Name Role Phone Arun Beltrán MD Primary Care Provider +1 -[phone] Encounter Details Date Type Department Care Team (Latest Contact Info) Description 01/10/2004 Outpatient Historical [facility] Medicine- [address] [address] Mervat Sandy MD [address] [place] [phone] SUPERVIS OTHER NORMAL PREG (Primary Dx) Social History Tobacco Use Types Packs/Day Years Used Date Smoking Tobacco: Never Assessed Comments Unknown Sex and Gender Information Value Date Recorded Sex Assigned at Not on file Legal Sex Female 5:32 AM BUSINESS TRAINER Gender Identity Not on file Sexual Orientation Not on file documented as of this encounter Plan of Treatment Not on file documented as of this encounter Visit Diagnoses Diagnosis Supervision of other normal - Primary documented in this encounter Care Teams Fortune Teller Relationship Specialty Start Date End Date Arun Beltrán MD [address] [facility] [address] [place] [address] PCP - General Family Practice 04/28/18 documented as of this encounter
--- OUTSIDE RECORDS SUMMARY | 2025-03-25 20:09 | XMS_ITS | Encounter Summary ---
Author Organization [facility] Address [address] [place] [address] Care Team Providers Care Truck Headlight Assembler Name Role Phone Arun Beltrán MD Primary Care Provider +1 -[phone] Encounter Details Date Type Department Care Team (Latest Contact Info) Description 03/04/2003 Outpatient Historical [facility] Medicine- [address] [address] Peter Watson MD [address] [phone] POSTPART CARE AFTER DEL (Primary Dx) Social History Tobacco Use Types Packs/Day Years Used Date Smoking Tobacco: Never Assessed Comments Unknown Sex and Gender Information Value Date Recorded Sex Assigned at Not on file Legal Sex Female 5:32 AM SKIP HOIST OPERATOR Gender Identity Not on file Sexual Orientation Not on file documented as of this encounter Plan of Treatment Not on file documented as of this encounter Visit Diagnoses Diagnosis care and examination immediately after delivery- Primary documented in this encounter Care Teams Truck Headlight Assembler Relationship Specialty Start Date End Date Arun Beltrán MD [address] [facility] 60 [place] [address] PCP - General Family Practice 04/28/18 documented as of this encounter
--- OUTSIDE RECORDS SUMMARY | 2025-03-25 20:09 | XMS_ITS | Encounter Summary ---
Author Organization [facility] Address [address] [place] [address] Care Team Providers Care Practice Coordinator Name Role Phone Arun Beltrán MD Primary Care Provider +1 -[phone] Encounter Details Date Type Department Care Team (Latest Contact Info) Description 03/25/2003 Outpatient Historical [facility] Medicine- [address] [address] Peter [place] MD [address] [phone] POSTPART CARE AFTER DEL (Primary Dx) Social History Tobacco Use Types Packs/Day Years Used Date Smoking Tobacco: Never Assessed Comments Unknown Sex and Gender Information Value Date Recorded Sex Assigned at Not on file Legal Sex Female 5:32 AM MAGAZINE KEEPER Gender Identity Not on file Sexual Orientation Not on file documented as of this encounter Plan of Treatment Not on file documented as of this encounter Visit Diagnoses Diagnosis care and examination immediately after delivery- Primary documented in this encounter Care Teams Practice Coordinator Relationship Specialty Start Date End Date Arun Beltrán MD [address] [facility] 60 [place] [address] PCP - General Family Practice 04/28/18 documented as of this encounter
--- OUTSIDE RECORDS SUMMARY | 2025-03-25 20:09 | XMS_ITS | Encounter Summary ---
Author Organization [facility] Address [address] [place] [address] Care Team Providers Care Battery Recharger Name Role Phone Arun Beltrán MD Primary Care Provider +1 -[phone] Encounter Details Date Type Department Care Team (Latest Contact Info) Description 01/22/2003 Outpatient Historical [facility] Medicine- [address] [address] Peter [place] MD [address] [phone] SUPERVIS OTHER NORMAL PREG (Primary Dx) Social History Tobacco Use Types Packs/Day Years Used Date Smoking Tobacco: Never Assessed Comments Unknown Sex and Gender Information Value Date Recorded Sex Assigned at Not on file Legal Sex Female 5:32 AM VERIFYING MACHINE OPERATOR Gender Identity Not on file Sexual Orientation Not on file documented as of this encounter Plan of Treatment Not on file documented as of this encounter Visit Diagnoses Diagnosis Supervision of other normal - Primary documented in this encounter Care Teams Battery Recharger Relationship Specialty Start Date End Date Arun Beltrán MD [address] [facility] 60 [place] [address] PCP - General Family Practice 04/28/18 documented as of this encounter
--- OUTSIDE RECORDS SUMMARY | 2025-03-25 20:09 | XMS_ITS | Encounter Summary ---
Author Organization [facility] Address [address] [place] [address] Care Team Providers Care Laundry Tech Name Role Phone Arun Beltrán MD Primary Care Provider +1 -[phone] Encounter Details Date Type Department Care Team (Late st Contact Info) Description 02/19/2008 Outpatient Historical [facility] [address] [place] [address] AMBULANCE, [facility] Social History Tobacco Use Types Packs/Day Years Used Date Smoking Tobacco: Never Assessed Comments Unknown Sex and Gender Information Value Date Recorded Sex Assigned at Not on file Legal Sex Female 5:32 AM PROPULSION MACHINERY SERVICE ENGINEER Gender Identity Not on file Sexual Orientation Not on file documented as of this encounter Plan of Treatment Not on file documented as of this encounter Visit Diagnoses Not on filedocumented in this encounter Care Teams Laundry Tech Relationship Specialty Start Date End Date Arun Beltrán MD [address] [facility] 60 [place] [address] PCP - General Family Practice 04/28/18 documented as of this encounter
--- OUTSIDE RECORDS SUMMARY | 2025-03-25 20:09 | XMS_ITS | Encounter Summary ---
Author Organization [facility] Address [address] [place] [address] Care Team Providers Care Crop Setting Out Machine Operator Name Role Phone Arun Beltrán MD Primary Care Provider +1 -[phone] Encounter Details Date Type Department Care Team (Latest Contact Info) Description 12/28/2002 Outpatient Historical [facility] [address] [address] Ana Rosa Grimm MD [address] [place] [phone] SUPERVIS OTHER NORMAL PREG (Primary Dx) Social History Tobacco Use Types Packs/Day Years Used Date Smoking Tobacco: Never Assessed Comments Unknown Sex and Gender Information Value Date Recorded Sex Assigned at Not on file Legal Sex Female 5:32 AM COOKER LOADER Gender Identity Not on file Sexual Orientation Not on file documented as of this encounter Plan of Treatment Not on file documented as of this encounter Visit Diagnoses Diagnosis Supervision of other normal - Primary documented in this encounter Care Teams Crop Setting Out Machine Operator Relationship Specialty Start Date End Date Arun Beltrán MD [address] [facility] 60 [place] [address] PCP - General Family Practice 04/28/18 documented as of this encounter
--- OUTSIDE RECORDS SUMMARY | 2025-03-25 20:09 | XMS_ITS | Encounter Summary ---
Author Organization [facility] Address [address] [facility] [address] Rod[address]guez: [place] [address] Care Team Providers Care Fingernail Former Name Role Phone Arun Beltrán MD Primary Care Provider +1 -[phone] Encounter Details Date Type Department Care Team (Late st Contact Info) Description 03/28/2000 Outpatient Historical [facility] NO ADDRESS ON FILE Social History Tobacco Use Types Packs/Day Years Used Date Smoking Tobacco: Never Assessed Comments Unknown Sex and Gender Information Value Date Recorded Sex Assigned at Not on file Legal Sex Female 5:32 AM PHYSICS TUTOR Gender Identity Not on file Sexual Orientation Not on file documented as of this encounter Plan of Treatment Not on file documented as of this encounter Visit Diagnoses Not on filedocumented in this encounter Care Teams Fingernail Former Relationship Specialty Start Date End Date Arun Beltrán MD [address] [facility] 60 [place] [address] PCP - General Family Practice 04/28/18 documented as of this encounter
--- OUTSIDE RECORDS SUMMARY | 2025-03-25 20:09 | XMS_ITS | Encounter Summary ---
Author Organization [facility] Address [address] [place] [address] Care Team Providers Care Gas Prover Name Role Phone Arun Beltrán MD Primary Care Provider +1 -[phone] Encounter Details Date Type Department Care Team (Latest Contact Info) Description 01/17/2004 Outpatient Historical [facility] Medicine- [address] [address] Mervat Sandy MD [address] [place] [phone] SUPERVIS OTHER NORMAL PREG (Primary Dx) Social History Tobacco Use Types Packs/Day Years Used Date Smoking Tobacco: Never Assessed Comments Unknown Sex and Gender Information Value Date Recorded Sex Assigned at Not on file Legal Sex Female 5:32 AM DIRECTOR OF CATEGORY MANAGEMENT Gender Identity Not on file Sexual Orientation Not on file documented as of this encounter Plan of Treatment Not on file documented as of this encounter Visit Diagnoses Diagnosis Supervision of other normal - Primary documented in this encounter Care Teams Gas Prover Relationship Specialty Start Date End Date Arun Beltrán MD [address] [facility] 60 [place] [address] PCP - General Family Practice 04/28/18 documented as of this encounter
--- OUTSIDE RECORDS SUMMARY | 2025-03-25 20:09 | XMS_ITS | Encounter Summary ---
Author Organization [facility] Address [address] [place] [address] Care Team Providers Care Chief Information Security Officer Name Role Phone Arun Beltrán MD Primary Care Provider +1 -[phone] Encounter Details Date Type Department Care Team (Latest Contact Info) Description 07/25/2003 Outpatient Historical [facility] Medicine- [address] [phone] Mervat Sandy MD [address] [place] [address] NONSPEC ABNL PAP SMEAR CERVIX, UNSPEC (Primary Dx); Venereal disease contact Social History Tobacco Use Types Packs/Day Years Used Date Smoking Tobacco: Never Assessed Comments Unknown Sex and Gender Information Value Date Recorded Sex Assigned at Not on file Legal Sex Female 5:32 AM CHIEF PHYSICAL THERAPIST Gender Identity Not on file Sexual Orientation Not on file documented as of this encounter Plan of Treatment Not on file documented as of this encounter Visit Diagnoses Diagnosis Abnormal glandular Papanicolaou smear of cervix- Primary Venereal disease contact Contact with or exposure to venereal diseases documented in this encounter Care Teams Chief Information Security Officer Relationship Specialty Start Date End Date Arun Beltrán MD [address] [facility] 60 [place] [address] PCP - General Family Practice 04/28/18 documented as of this encounter
--- OUTSIDE RECORDS SUMMARY | 2025-03-25 20:09 | XMS_ITS | Encounter Summary ---
Author Organization [facility] Address [address] [place] [address] Care Team Providers Care Chief Commercial Officer Name Role Phone Arun Beltrán MD Primary Care Provider +1 -[phone] Encounter Details Date Type Department Care Team (Latest Contact Info) Description 11/27/2002 Outpatient Historical [facility] Medicine- [address] [address] Peter [place] MD [address] [phone] SUPERVIS OTHER NORMAL PREG (Primary Dx) Social History Tobacco Use Types Packs/Day Years Used Date Smoking Tobacco: Never Assessed Comments Unknown Sex and Gender Information Value Date Recorded Sex Assigned at Not on file 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
--- OUTSIDE RECORDS SUMMARY | 2025-03-25 20:09 | XMS_ITS | Encounter Summary ---
Author Organization [facility] Address [address] [place] [address] Care Team Providers Care Home Visits Nurse Name Role Phone Arun Beltrán MD Primary Care Provider +1 -[phone] Encounter Details Date Type Department Care Team (Latest Contact Info) Description 06/28/2002 Outpatient Historical [facility] Medicine- [address] [address] Peter [place] MD [address] [phone] SUPERVIS OTHER NORMAL PREG (Primary Dx) Social History Tobacco Use Types Packs/Day Years Used Date Smoking Tobacco: Never Assessed Comments Unknown Sex and Gender Information Value Date Recorded Sex Assigned at Not on file Legal Sex Female 5:32 AM GAS PUMP ATTENDANT Gender Identity Not on file Sexual Orientation Not on file documented as of this encounter Plan of Treatment Not on file documented as of this encounter Visit Diagnoses Diagnosis Supervision of other normal - Primary documented in this encounter Care Teams Home Visits Nurse Relationship Specialty Start Date End Date Arun Beltrán MD [address] [facility] 60 [place] [address] PCP - General Family Practice 04/28/18 documented as of this encounter
--- OUTSIDE RECORDS SUMMARY | 2025-03-25 20:09 | XMS_ITS | Encounter Summary ---
Author Organization [facility] Address [address] [place] [address] Care Team Providers Care Solid Plasterer Name Role Phone Arun Beltrán MD Primary Care Provider +1 -[phone] Encounter Details Date Type Department Care Team (Latest Contact Info) Description 05/13/2003 Outpatient Historical [facility] Medicine[address] [address] [facility] [address] COUNSELING OTHER UNSPECIFIED (Primary Dx) Social History Tobacco Use Types Packs/Day Years Used Date Smoking Tobacco: Never Assessed Comments Unknown Sex and Gender Information Value Date Recorded Sex Assigned at Not on file Legal Sex Female 5:32 AM CUT OFF WORKER Gender Identity Not on file Sexual Orientation Not on file documented as of this encounter Plan of Treatment Not on file documented as of this encounter Visit Diagnoses Diagnosis Counseling NOS(V65.40)- Primary Counseling NOS documented in this encounter Care Teams Solid Plasterer Relationship Specialty Start Date End Date Arun Beltrán MD [address] [facility] 60 [place] [address] PCP - General Family Practice 04/28/18 documented as of this encounter
--- OUTSIDE RECORDS SUMMARY | 2025-03-25 20:09 | XMS_ITS | Encounter Summary ---
Author Organization [facility] Address [address] [place] [address] Care Team Providers Care Swiss Type Screw Machine Operator Name Role Phone Arun Beltrán MD Primary Care Provider +1 -[phone] Encounter Details Date Type Department Care Team (Late st Contact Info) Description 06/28/2002 Outpatient Historical [facility] [address] [address] Peter [place] MD [address] [phone] Social History Tobacco Use Types Packs/Day Years Used Date Smoking Tobacco: Never Assessed Comments Unknown Sex and Gender Information Value Date Recorded Sex Assigned at Not on file Legal Sex Female 5:32 AM PRETZEL COOKER Gender Identity Not on file Sexual Orientation Not on file documented as of this encounter Plan of Treatment Not on file documented as of this encounter Visit Diagnoses Not on filedocumented in this encounter Care Teams Swiss Type Screw Machine Operator Relationship Specialty Start Date End Date Arun Beltrán MD [address] [facility] 60 [place] [address] PCP - General Family Practice 04/28/18 documented as of this encounter
--- OUTSIDE RECORDS SUMMARY | 2025-03-25 20:09 | XMS_ITS | Encounter Summary ---
Author Organization [facility] Address [address] [place] [address] Care Team Providers Care Meeting/Event Planner Name Role Phone Arun Beltrán MD Primary Care Provider +1 -[phone] Encounter Details Date Type Department Care Team (Late st Contact Info) Description 04/05/2006 Emergency [facility] [address] [place] [address] Faustino Stanton MD NO ADDRESS ON FILE Conversion, History NO ADDRESS ON FILE Bronchitis, not Specified as Acute or Chronic (Primary Dx); Hemoptysis Social History Tobacco Use Types Packs/Day Years Used Date Smoking Tobacco: Never Assessed Comments Unknown Sex and Gender Information Value Date Recorded Sex Assigned at Not on file Legal Sex Female 5:32 AM MEDICAL ANTHROPOLOGY DIRECTOR Gender Identity Not on file Sexual Orientation Not on file documented as of this encounter Plan of Treatment Not on file documented as of this encounter Visit Diagnoses Diagnosis Bronchitis, not specified as acute or chronic- Primary Hemoptysis documented in this encounter Care Teams Meeting/Event Planner Relationship Specialty Start Date End Date Arun Beltrán MD [address] [facility] 60 [place] [address] PCP - General Family Practice 04/28/18 documented as of this encounter
--- OUTSIDE RECORDS SUMMARY | 2025-03-25 20:09 | XMS_ITS | Encounter Summary ---
Author Organization [facility] Address [address] [place] [address] Care Team Providers Care Weatherization And Housing Inspector Name Role Phone Arun Beltrán MD Primary Care Provider +1 -[phone] Encounter Details Date Type Department Care Team (Latest Contact Info) Description 10/31/2003 Outpatient Historical [facility] Medicine- [address] [address] Mervat Sandy MD [address] [place] [phone] SUPERVIS OTHER NORMAL PREG (Primary Dx) Social History Tobacco Use Types Packs/Day Years Used Date Smoking Tobacco: Never Assessed Comments Unknown Sex and Gender Information Value Date Recorded Sex Assigned at Not on file Legal Sex Female 5:32 AM PMO BUSINESS ANALYST Gender Identity Not on file Sexual Orientation Not on file documented as of this encounter Plan of Treatment Not on file documented as of this encounter Visit Diagnoses Diagnosis Supervision of other normal - Primary documented in this encounter Care Teams Weatherization And Housing Inspector Relationship Specialty Start Date End Date Arun Beltrán MD [address] [facility] [address] [place] [address] PCP - General Family Practice 04/28/18 documented as of this encounter
--- OUTSIDE RECORDS SUMMARY | 2025-03-25 20:09 | XMS_ITS | Encounter Summary ---
Author Organization [facility] Address [address] [place] [address] Care Team Providers Care Vice President Education Name Role Phone Arun Beltrán MD Primary Care Provider +1 -[phone] Encounter Details Date Type Department Care Team (Latest Contact Info) Description 05/20/2003 Outpatient Historical [facility] Medicine- [address] [address] Peter [place] MD [address] [phone] CONTRACEPT SURVEILL NEC (Primary Dx) Social History Tobacco Use Types Packs/Day Years Used Date Smoking Tobacco: Never Assessed Comments Unknown Sex and Gender Information Value Date Recorded Sex Assigned at Not on file Legal Sex Female 5:32 AM REGIONAL EDUCATION COORDINATOR Gender Identity Not on file Sexual Orientation Not on file documented as of this encounter Plan of Treatment Not on file documented as of this encounter Visit Diagnoses Diagnosis Surveillance of other previously prescribed contraceptive method- Primary documented in this encounter Care Teams Vice President Education Relationship Specialty Start Date End Date Arun Beltrán MD [address] [facility] 60 [place] [address] PCP - General Family Practice 04/28/18 documented as of this encounter
--- OUTSIDE RECORDS SUMMARY | 2025-03-25 20:09 | XMS_ITS | Encounter Summary ---
Author Organization [facility] Address [address] [place] [address] Care Team Providers Care Truck Crane Operator Helper Name Role Phone Arun Beltrán MD Primary Care Provider +1 -[phone] Encounter Details Date Type Department Care Team (Latest Contact Info) Description 01/28/1999 Outpatient Historical [facility] Family Medicine [place] [address] [address] Christina Mcintyre NO ADDRESS ON FILE Tietze's disease (Primary Dx) Social History Tobacco Use Types Packs/Day Years Used Date Smoking Tobacco: Never Assessed Comments Unknown Sex and Gender Information Value Date Recorded Sex Assigned at Not on file Legal Sex Female 5:32 AM TRUCK CRANE OPERATOR HELPER Gender Identity Not on file Sexual Orientation Not on file documented as of this encounter Plan of Treatment Not on file documented as of this encounter Visit Diagnoses Diagnosis Tietze's disease- Primary documented in this encounter Care Teams Truck Crane Operator Helper Relationship Specialty Start Date End Date Arun Beltrán MD [address] [phone] PCP - General Family Practice 04/28/18 documented as of this encounter
--- OUTSIDE RECORDS SUMMARY | 2025-03-25 20:09 | XMS_ITS | Encounter Summary ---
Author Organization [facility] Address [address] [place] [address] Care Team Providers Care Cancer Registrar Name Role Phone Arun Beltrán MD Primary Care Provider +1 -[phone] Encounter Details Date Type Department Care Team (Late st Contact Info) Description 07/05/2007 Emergency [facility] [address] [place] [address] Brothers, Vini F, PA [address] [place] [address] Conversion, History NO ADDRESS ON FILE Abn Uterus NEC-Antepart (Primary Dx); Other and Unspecified Ovarian Cyst Social History Tobacco Use Types Packs/Day Years Used Date Smoking Tobacco: Never Assessed Comments Unknown Sex and Gender Information Value Date Recorded Sex Assigned at Not on file Legal Sex Female 5:32 AM SPEECH WRITER Gender Identity Not on file Sexual Orientation Not on file documented as of this encounter Plan of Treatment Not on file documented as of this encounter Visit Diagnoses Diagnosis Other abnormalities in shape or position of gravid uterus and of neighboring structures, antepartum- Primary Other and unspecified ovarian cyst documented in this encounter Care Teams Cancer Registrar Relationship Specialty Start Date End Date Arun Beltrán MD [address] [facility] 60 [place] [address] PCP - General Family Practice 04/28/18 documented as of this encounter
--- OUTSIDE RECORDS SUMMARY | 2025-03-25 20:09 | XMS_ITS | Encounter Summary ---
Author Organization [facility] Address [address] [place] [address] Care Team Providers Care Timber Faller Name Role Phone Arun Beltrán MD Primary Care Provider +1 -[phone] Encounter Details Date Type Department Care Team (Latest Contact Info) Description 12/05/2002 Outpatient Historical [facility] Medicine- [address] [address] Peter Watson MD [address] [phone] SUPERVIS OTHER NORMAL PREG (Primary Dx) Social History Tobacco Use Types Packs/Day Years Used Date Smoking Tobacco: Never Assessed Comments Unknown Sex and Gender Information Value Date Recorded Sex Assigned at Not on file Legal Sex Female 5:32 AM BILINGUAL MEDICAL RECEPTIONIST Gender Identity Not on file Sexual Orientation Not on file documented as of this encounter Plan of Treatment Not on file documented as of this encounter Visit Diagnoses Diagnosis Supervision of other normal - Primary documented in this encounter Care Teams Timber Faller Relationship Specialty Start Date End Date Arun Beltrán MD [address] [facility] 60 [place] [address] PCP - General Family Practice 04/28/18 documented as of this encounter
--- OUTSIDE RECORDS SUMMARY | 2025-03-25 20:09 | XMS_ITS | Encounter Summary ---
Author Organization [facility] Address [address] [place] [address] Care Team Providers Care Die Designer Apprentice Name Role Phone Arun Beltrán MD Primary Care Provider +1 -[phone] Encounter Details Date Type Department Care Team (Latest Contact Info) Description 12/05/2002 Outpatient Historical [facility] Medicine[address] [address] [facility], [address] [facility] [address] SUPERVIS OTHER NORMAL PREG (Primary Dx) Social History Tobacco Use Types Packs/Day Years Used Date Smoking Tobacco: Never Assessed Comments Unknown Sex and Gender Information Value Date Recorded Sex Assigned at Not on file Legal Sex Female 5:32 AM MALLET CUTTER Gender Identity Not on file Sexual Orientation Not on file documented as of this encounter Plan of Treatment Not on file documented as of this encounter Visit Diagnoses Diagnosis Supervision of other normal - Primary documented in this encounter Care Teams Die Designer Apprentice Relationship Specialty Start Date End Date Arun Beltrán MD [address] [facility] 60 [place] [address] PCP - General Family Practice 04/28/18 documented as of this encounter
--- OUTSIDE RECORDS SUMMARY | 2025-03-25 20:09 | XMS_ITS | Encounter Summary ---
Author Organization [facility] Address [address] [place] [address] Care Team Providers Care Barrel Rifler Hook Name Role Phone Arun Beltrán MD Primary Care Provider +1 -[phone] Encounter Details Date Type Department Care Team (Latest Contact Info) Description 01/22/2003 Outpatient Historical [facility] Medicine- [address] [address] Peter Watson MD [address] [phone] SUPERVIS OTHER NORMAL PREG (Primary Dx) Social History Tobacco Use Types Packs/Day Years Used Date Smoking Tobacco: Never Assessed Comments Unknown Sex and Gender Information Value Date Recorded Sex Assigned at Not on file 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
--- OUTSIDE RECORDS SUMMARY | 2025-03-25 20:09 | XMS_ITS | Encounter Summary ---
Author Organization [facility] Address [address] [place] [address] Care Team Providers Care Wind Power Project Manager Name Role Phone Arun Beltrán MD Primary Care Provider +1 -[phone] Encounter Details Date Type Department Care Team (Latest Contact Info) Description 04/22/2003 Outpatient Historical [facility] Medicine- [address] [address] Peter Watson MD [address] [phone] ROUT POSTPART FOLLOW-UP (Primary Dx); CONTRACEPTIVE MANGMT NEC Social History Tobacco Use Types Packs/Day Years Used Date Smoking Tobacco: Never Assessed Comments Unknown Sex and Gender Information Value Date Recorded Sex Assigned at Not on file Legal Sex Female 5:32 AM VP CARDIOVASCULAR Gender Identity Not on file Sexual Orientation Not on file documented as of this encounter Plan of Treatment Not on file documented as of this encounter Visit Diagnoses Diagnosis Routine follow-up- Primary Other general counseling and advice for contraceptive management documented in this encounter Care Teams Wind Power Project Manager Relationship Specialty Start Date End Date Arun Beltrán MD [address] [facility] 60 [place] [address] PCP - General Family Practice 04/28/18 documented as of this encounter
--- OUTSIDE RECORDS SUMMARY | 2025-03-25 20:09 | XMS_ITS | Encounter Summary ---
Author Organization [facility] Address [address] [place] [address] Care Team Providers Care Education Specialist Name Role Phone Arun Beltrán MD Primary Care Provider +1 -[phone] Encounter Details Date Type Department Care Team (Latest Contact Info) Description 09/23/2003 Outpatient Historical [facility] Medicine- [address] [address] Mervat Sandy MD [address] [place] [phone] SUPERVIS OTHER NORMAL PREG (Primary Dx) Social History Tobacco Use Types Packs/Day Years Used Date Smoking Tobacco: Never Assessed Comments Unknown Sex and Gender Information Value Date Recorded Sex Assigned at Not on file 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
--- OUTSIDE RECORDS SUMMARY | 2025-03-25 20:09 | XMS_ITS | Encounter Summary ---
Author Organization [facility] Address [address] [place] [address] Care Team Providers Care Lithograph Press Feeder Name Role Phone Arun Beltrán MD Primary Care Provider +1 -[phone] Encounter Details Date Type Department Care Team (Latest Contact Info) Description 02/14/2003 Outpatient Historical [facility] Medicine- [address] [address] Peter Watson MD [address] [phone] SUPERVIS OTHER NORMAL PREG (Primary Dx) Social History Tobacco Use Types Packs/Day Years Used Date Smoking Tobacco: Never Assessed Comments Unknown Sex and Gender Information Value Date Recorded Sex Assigned at Not on file Legal Sex Female 5:32 AM REPLACER Gender Identity Not on file Sexual Orientation Not on file documented as of this encounter Plan of Treatment Not on file documented as of this encounter Visit Diagnoses Diagnosis Supervision of other normal - Primary documented in this encounter Care Teams Lithograph Press Feeder Relationship Specialty Start Date End Date Arun Beltrán MD [address] [facility] 60 [place] [address] PCP - General Family Practice 04/28/18 documented as of this encounter
--- OUTSIDE RECORDS SUMMARY | 2025-03-25 20:09 | XMS_ITS | Encounter Summary ---
Author Organization [facility] Address [address] [place] [address] Care Team Providers Care Drywall Application Supervisor Name Role Phone Arun Beltrán MD Primary Care Provider +1 -[phone] Encounter Details Date Type Department Care Team (Latest Contact Info) Description 04/22/2003 Outpatient Historical [facility] Medicine[address] [address] Peter Watson MD [address] [phone] SCREENING MAL NEOP-CERVIX (Primary Dx) Social History Tobacco Use Types Packs/Day Years Used Date Smoking Tobacco: Never Assessed Comments Unknown Sex and Gender Information Value Date Recorded Sex Assigned at Not on file 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
--- OUTSIDE RECORDS SUMMARY | 2025-03-25 20:09 | XMS_ITS | Encounter Summary ---
Author Organization [facility] Address [address] [place] [address] Care Team Providers Care Sales Assistant Name Role Phone Arun Beltrán MD Primary Care Provider +1 -[phone] Encounter Details Date Type Department Care Team (Latest Contact Info) Description 05/13/2003 Outpatient Historical [facility] [address] [address] Peter Watson MD [address] [phone] CONTRACEPTIVE MANGMT NEC (Primary Dx) Social History Tobacco Use Types Packs/Day Years Used Date Smoking Tobacco: Never Assessed Comments Unknown Sex and Gender Information Value Date Recorded Sex Assigned at Not on file 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
--- OUTSIDE RECORDS SUMMARY | 2025-03-25 20:09 | XMS_ITS | Encounter Summary ---
Author Organization [facility] Address [address] [place] [address] Care Team Providers Care Palliative Care Nurse Name Role Phone Arun Beltrán MD Primary Care Provider +1 -[phone] Encounter Details Date Type Department Care Team (Latest Contact Info) Description 02/22/2003 Outpatient Historical [facility] Medicine [address] [phone] Ana Rosa Grimm MD [address] [place] [phone] MASTODYNIA (Primary Dx) Social History Tobacco Use Types Packs/Day Years Used Date Smoking Tobacco: Never Assessed Comments Unknown Sex and Gender Information Value Date Recorded Sex Assigned at Not on file 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
--- OUTSIDE RECORDS SUMMARY | 2025-03-25 20:09 | XMS_ITS | Encounter Summary ---
Author Organization [facility] Address [address] [place] [address] Care Team Providers Care Blueprinting Machine Operator Name Role Phone Arun Beltrán MD Primary Care Provider +1 -[phone] Encounter Details Date Type Department Care Team (Latest Contact Info) Description 12/19/2003 Outpatient Historical [facility] Medicine- [address] [address] Mervat Sandy MD [address] [place] [phone] SUPERVIS OTHER NORMAL PREG (Primary Dx) Social History Tobacco Use Types Packs/Day Years Used Date Smoking Tobacco: Never Assessed Comments Unknown Sex and Gender Information Value Date Recorded Sex Assigned at Not on file 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
--- OUTSIDE RECORDS SUMMARY | 2025-03-25 20:09 | XMS_ITS | Encounter Summary ---
Author Organization [facility] Address [address] [place] [address] Care Team Providers Care Director Of Quality Name Role Phone Arun Beltrán MD Primary Care Provider +1 -[phone] Encounter Details Date Type Department Care Team (Latest Contact Info) Description 07/03/2002 Outpatient Historical [facility] Medicine- [address] [address] Peter Watson MD [address] [phone] SUPERVIS OTHER NORMAL PREG (Primary Dx); Dietary surveil/spiritual counselor Social History Tobacco Use Types Packs/Day Years Used Date Smoking Tobacco: Never Assessed Comments Unknown Sex and Gender Information Value Date Recorded Sex Assigned at Not on file Legal Sex Female 5:32 AM DIRECTOR OF CAREER RESOURCES Gender Identity Not on file Sexual Orientation Not on file documented as of this encounter Plan of Treatment Not on file documented as of this encounter Visit Diagnoses Diagnosis Supervision of other normal - Primary Dietary surveil/spiritual counselor Dietary surveillance and counseling documented in this encounter Care Teams Director Of Quality Relationship Specialty Start Date End Date Arun Beltrán MD [address] [facility] 60 [place] [address] PCP - General Family Practice 04/28/18 documented as of this encounter
--- OUTSIDE RECORDS SUMMARY | 2025-03-25 20:09 | XMS_ITS | Encounter Summary ---
Author Organization [facility] Address [address] [place] [address] Care Team Providers Care Clinical Liaison Name Role Phone Arun Beltrán MD Primary Care Provider +1 -[phone] Encounter Details Date Type Department Care Team (Latest Contact Info) Description 12/02/2003 Outpatient Historical [facility] Medicine- [address] [address] Mervat Sandy MD [address] [place] [phone] SUPERVIS OTHER NORMAL PREG (Primary Dx); POLYHYDRAMNIOS-UNSPE C Social History Tobacco Use Types Packs/Day Years Used Date Smoking Tobacco: Never Assessed Comments Unknown Sex and Gender Information Value Date Recorded Sex Assigned at Not on file Legal Sex Female 5:32 AM NUTRITION SPECIALIST Gender Identity Not on file Sexual Orientation Not on file documented as of this encounter Plan of Treatment Not on file documented as of this encounter Visit Diagnoses Diagnosis Supervision of other normal - Primary Polyhydramnios, unspecified as to episode of care documented in this encounter Care Teams Clinical Liaison Relationship Specialty Start Date End Date Arun Beltrán MD [address] [facility] 60 [place] [address] PCP - General Family Practice 04/28/18 documented as of this encounter
--- OUTSIDE RECORDS SUMMARY | 2025-03-25 20:10 | XMS_ITS | Encounter Summary ---
Author Organization [facility] Address [address] [place] [address] Care Team Providers Care Air Conditioning Installer Supervisor Name Role Phone Arun Beltrán MD Primary Care Provider +1 -[phone] Encounter Details Date Type Department Care Team (Latest Contact Info) Description 08/09/2002 Outpatient Historical [facility] Medicine- [address] [address] Peter Watson MD [address] [phone] SPRAIN NEC (Primary Dx); SUPERVIS OTHER NORMAL PREG; TOBACCO USE DISORDER Social History Tobacco Use Types Packs/Day Years Used Date Smoking Tobacco: Never Assessed Comments Unknown Sex and Gender Information Value Date Recorded Sex Assigned at Not on file 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
--- OUTSIDE RECORDS SUMMARY | 2025-03-25 20:10 | XMS_ITS | Encounter Summary ---
Author Organization [facility] Address [address] [place] [address] Care Team Providers Care Dietary Aid Name Role Phone Arun Beltrán MD Primary Care Provider +1 -[phone] Encounter Details Date Type Department Care Team (Latest Contact Info) Description 07/06/2002 Outpatient Historical [facility] Medicine- [address] [address] Peter Watson MD [address] [phone] SUPERVIS OTHER NORMAL PREG (Primary Dx) Social History Tobacco Use Types Packs/Day Years Used Date Smoking Tobacco: Never Assessed Comments Unknown Sex and Gender Information Value Date Recorded Sex Assigned at Not on file Legal Sex Female 5:32 AM HYDROTHERAPIST Gender Identity Not on file Sexual Orientation Not on file documented as of this encounter Plan of Treatment Not on file documented as of this encounter Visit Diagnoses Diagnosis Supervision of other normal - Primary documented in this encounter Care Teams Dietary Aid Relationship Specialty Start Date End Date Arun Beltrán MD [address] [facility] 60 [place] [address] PCP - General Family Practice 04/28/18 documented as of this encounter
--- OUTSIDE RECORDS SUMMARY | 2025-03-25 20:10 | XMS_ITS | Encounter Summary ---
Author Organization [facility] Address [address] [place] [address] Care Team Providers Care Tool Setter Apprentice Name Role Phone Arun Beltrán MD Primary Care Provider + -[phone] Encounter Details Date Type Department Care Team (Latest Contact Info) Description 12/23/1998 Outpatient Historical [facility] Family Medicine [place] [address] [address] Jerad Rizzo MD [address] [phone] Chest pain, unspecified (Primary Dx); Acute sinusitis, unspecified Social History Tobacco Use Types Packs/Day Years Used Date Smoking Tobacco: Never Assessed Comments Unknown Sex and Gender Information Value Date Recorded Sex Assigned at Not on file Legal Sex Female 5:32 AM RADIATION OFFICER Gender Identity Not on file Sexual Orientation Not on file documented as of this encounter Plan of Treatment Not on file documented as of this encounter Visit Diagnoses Diagnosis Chest pain, unspecified- Primary Acute sinusitis, unspecified documented in this encounter Care Teams Tool Setter Apprentice Relationship Specialty Start Date End Date Arun Beltrán MD [address] [address] PCP - General Family Practice 04/28/18 documented as of this encounter
--- OUTSIDE RECORDS SUMMARY | 2025-03-25 20:10 | XMS_ITS | Encounter Summary ---
Author Organization [facility] Address [address] [place] [address] Care Team Providers Care Checker In Name Role Phone Arun Beltrán MD Primary Care Provider +1 -[phone] Encounter Details Date Type Department Care Team (Latest Contact Info) Description 11/17/1998 Outpatient Historical [facility] Medicine [place] [address] [address] Jerad Rizzo MD [address] [phone] Infectious mononucleosis (Primary Dx); Pneumonia due to Mycoplasma pneumoniae Social History Tobacco Use Types Packs/Day Years Used Date Smoking Tobacco: Never Assessed Comments Unknown Sex and Gender Information Value Date Recorded Sex Assigned at Not on file Legal Sex Female 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
--- OUTSIDE RECORDS SUMMARY | 2025-03-25 20:10 | XMS_ITS | Encounter Summary ---
Author Organization [facility] Address [address] [place] [address] Care Team Providers Care Vascular Specialists Name Role Phone Arun Beltrán MD Primary Care Provider + -[phone] Encounter Details Date Type Department Care Team (Latest Contact Info) Description 11/14/1998 Outpatient Historical [facility] Medicine [place] [address] [address] Jerad Rizzo MD [address] [phone] Infectious mononucleosis (Primary Dx); Pneumonia due to Mycoplasma pneumoniae; Acute tonsillitis Social History Tobacco Use Types Packs/Day Years [...] mononucleosis- Primary Pneumonia due to Mycoplasma pneumoniae Acute tonsillitis documented in this encounter Care Teams Vascular Specialists Relationship Specialty Start Date End Date Arun Beltrán MD [address] [address] PCP - General Family Practice 04/28/18 documented as of this encounter
--- OUTSIDE RECORDS SUMMARY | 2025-03-25 20:10 | XMS_ITS | Encounter Summary ---
Author Organization [facility] Address [address] [place] [address] Care Team Providers Care Sommelier Name Role Phone Arun Beltrán MD Primary Care Provider +1 -[phone] Encounter Details Date Type Department Care Team (Latest Contact Info) Description 01/02/2004 Outpatient Historical [facility] Medicine- [address] [address] Mervat Sandy MD [address] [place] [phone] SUPERVIS OTHER NORMAL PREG (Primary Dx) Social History Tobacco Use Types Packs/Day Years Used Date Smoking Tobacco: Never Assessed Comments Unknown Sex and Gender Information Value Date Recorded Sex Assigned at Not on file Legal Sex Female 5:32 AM PETAL SHAPER HAND Gender Identity Not on file Sexual Orientation Not on file documented as of this encounter Plan of Treatment Not on file documented as of this encounter Visit Diagnoses Diagnosis Supervision of other normal - Primary documented in this encounter Care Teams Sommelier Relationship Specialty Start Date End Date Arun Beltrán MD [address] [facility] [address] [place] [address] PCP - General Family Practice 04/28/18 documented as of this encounter
--- OUTSIDE RECORDS SUMMARY | 2025-03-25 20:10 | XMS_ITS | Encounter Summary ---
Author Organization [facility] Address [address] [place] [address] Care Team Providers Care Refrigerator Car Icer Name Role Phone Arun Beltrán MD Primary Care Provider +1 -[phone] Encounter Details Date Type Department Care Team (Latest Contact Info) Description 08/17/[address] 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
--- OUTSIDE RECORDS SUMMARY | 2025-03-25 20:10 | XMS_ITS | Encounter Summary ---
Author Organization [facility] Address [address] [place] [address] Care Team Providers Care Rn Intake Name Role Phone Arun Beltrán MD Primary Care Provider +1 -[phone] Encounter Details Date Type Department Care Team (Latest Contact Info) Description 12/23/2003 Outpatient Historical [facility] Maternal and Medicine-[facility] d [address] [place] [address] Juanjose Aguila MD NO ADDRESS ON FILE POLYHYDRAMNIOS-ANTEP ART (Primary Dx) Social History Tobacco Use Types Packs/Day Years Used Date Smoking Tobacco: Never Assessed Comments Unknown Sex and Gender Information Value Date Recorded Sex Assigned at Not on file Legal Sex Female 5:32 AM SOFTWARE REQUIREMENTS ENGINEER Gender Identity Not on file Sexual Orientation Not on file documented as of this encounter Plan of Treatment Not on file documented as of this encounter Visit Diagnoses Diagnosis Polyhydramnios, antepartum complication- Primary documented in this encounter Care Teams Rn Intake Relationship Specialty Start Date End Date Arun Beltrán MD [address] [facility] 60 [place] [address] PCP - General Family Practice 04/28/18 documented as of this encounter
--- OUTSIDE RECORDS SUMMARY | 2025-03-25 20:10 | XMS_ITS | Encounter Summary ---
Author Organization [facility] Address [address] [place] [address] Care Team Providers Care Aircraft Life Support Fitter Name Role Phone Arun Beltrán MD Primary Care Provider +1 -[phone] Encounter Details Date Type Department Care Team (Latest Contact Info) Description 07/27/2002 Outpatient Historical 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
--- OUTSIDE RECORDS SUMMARY | 2025-03-25 20:10 | XMS_ITS | Encounter Summary ---
Author Organization [facility] Address [address] [place] [address] Care Team Providers Care Tuber Machine Operator Helper Name Role Phone Arun Beltrán MD Primary Care Provider +1 [phone] Encounter Details Date Type Department Care Team (Latest Contact Info) Description 09/26/2002 Outpatient Historical [facility] Medicine[address] [address] Benitez Moreno MD [address] [place] [address] ACUTE BRONCHITIS (Primary Dx); ACUTE PHARYNGITIS; SUPERVIS OTHER NORMAL PREG Social History Tobacco Use Types Packs/Day Years Used Date Smoking Tobacco: Never Assessed Comments Unknown Sex and Gender Information Value Date Recorded Sex Assigned at Not on file 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
--- OUTSIDE RECORDS SUMMARY | 2025-03-25 20:10 | XMS_ITS | Encounter Summary ---
Author Organization [facility] Address [address] [place] [address] Care Team Providers Care Commissary Assistant Name Role Phone Arun Beltrán MD Primary Care Provider +1 [phone] Encounter Details Date Type Department Care Team (Latest Contact Info) Description 10/08/2002 Outpatient Historical [facility] Medicine- [address] [address] Nupur Moon MD [address] [place], [place] [id number] INGROWING NAIL (Primary Dx) Social History Tobacco Use Types Packs/Day Years Used Date Smoking Tobacco: Never Assessed Comments Unknown Sex and Gender Information Value Date Recorded Sex Assigned at Not on file Legal Sex Female 5:32 AM EDITOR INDEX Gender Identity Not on file Sexual Orientation Not on file documented as of this encounter Plan of Treatment Not on file documented as of this encounter Visit Diagnoses Diagnosis Ingrowing nail- Primary documented in this encounter Care Teams Commissary Assistant Relationship Specialty Start Date End Date Arun Beltrán MD [address] [facility] 60 [place] [address] PCP - General Family Practice 04/28/18 documented as of this encounter
--- OUTSIDE RECORDS SUMMARY | 2025-03-25 20:10 | XMS_ITS | Encounter Summary ---
Author Organization [facility] Address [address] [place] [address] Care Team Providers Care Accounts Receivable Executive Name Role Phone Arun Beltrán MD Primary Care Provider +1 [phone] Encounter Details Date Type Department Care Team (Latest Contact Info) Description 10/23/2002 Outpatient Historical [facility] Medicine- [address] [address] Peter Watson MD [address] [phone] SUPERVIS OTHER NORMAL PREG (Primary Dx) Social History Tobacco Use Types Packs/Day Years Used Date Smoking Tobacco: Never Assessed Comments Unknown Sex and Gender Information Value Date Recorded Sex Assigned at Not on file 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
--- OUTSIDE RECORDS SUMMARY | 2025-03-25 20:10 | XMS_ITS | Encounter Summary ---
Author Organization [facility] Address [address] [place] [address] Care Team Providers Care Senior Principal Process Engineer Name Role Phone Arun Beltrán MD Primary Care Provider +1 [phone] Encounter Details Date Type Department Care Team (Latest Contact Info) Description 01/10/2004 Outpatient Historical [facility] Medicine- [address] [address] Mervat Sandy MD [address] [place] [phone] SUPERVIS OTHER NORMAL PREG (Primary Dx) Social History Tobacco Use Types Packs/Day Years Used Date Smoking Tobacco: Never Assessed Comments Unknown Sex and Gender Information Value Date Recorded Sex Assigned at Not on file Legal Sex Female 5:32 AM HOT MILL TIN ROLLER Gender Identity Not on file Sexual Orientation Not on file documented as of this encounter Plan of Treatment Not on file documented as of this encounter Visit Diagnoses Diagnosis Supervision of other normal - Primary documented in this encounter Care Teams Senior Principal Process Engineer Relationship Specialty Start Date End Date Arun Beltrán MD [address] [facility] 60 [place] [address] PCP - General Family Practice 04/28/18 documented as of this encounter
--- OUTSIDE RECORDS SUMMARY | 2025-03-25 20:10 | XMS_ITS | Encounter Summary ---
Author Organization [facility] Address [address] [place] [address] Care Team Providers Care Tip Stretcher Name Role Phone Arun Beltrán MD Primary Care Provider +1 [phone] Encounter Details Date Type Department Care Team (Latest Contact Info) Description 09/18/2002 Outpatient Historical [facility] Medicine- [address] [address] Peter Watson MD [address] [phone] SUPERVIS OTHER NORMAL PREG (Primary Dx) Social History Tobacco Use Types Packs/Day Years Used Date Smoking Tobacco: Never Assessed Comments Unknown Sex and Gender Information Value Date Recorded Sex Assigned at Not on file 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
--- OUTSIDE RECORDS SUMMARY | 2025-03-25 20:10 | XMS_ITS | Encounter Summary ---
Author Organization [facility] Address [address] [place] [address] Care Team Providers Care Straddle Bug Operator Name Role Phone Arun Beltrán MD Primary Care Provider +1 -[phone] Encounter Details Date Type Department Care Team (Latest Contact Info) Description 09/19/2002 Outpatient Historical [facility] Medicine- [address] [address] Peter Watson MD [address] [phone] SUPERVIS OTHER NORMAL PREG (Primary Dx) Social History Tobacco Use Types Packs/Day Years Used Date Smoking Tobacco: Never Assessed Comments Unknown Sex and Gender Information Value Date Recorded Sex Assigned at Not on file Legal Sex Female 5:32 AM BOBBIN CLEANER HAND Gender Identity Not on file Sexual Orientation Not on file documented as of this encounter Plan of Treatment Not on file documented as of this encounter Visit Diagnoses Diagnosis Supervision of other normal - Primary documented in this encounter Care Teams Straddle Bug Operator Relationship Specialty Start Date End Date Arun Beltrán MD [address] [facility] 60 [place] [address] PCP - General Family Practice 04/28/18 documented as of this encounter
--- OUTSIDE RECORDS SUMMARY | 2025-03-25 20:10 | XMS_ITS | Clinical Summary ---
Author Organization [facility] Address [address] [place] [address] Phone Care Team Providers Care Label Printer Name Role Phone Arun Beltrán MD Primary Care Provider +1 -[phone] Allergies No known active allergies Medications No known medications Active Problems Problem Noted Date Diagnosed Date Memory loss 08/11/2017 Sciatica of right side 06/30/2016 Tobacco use disorder, mild, in early remission 0 2015 Major depression 01/10/2014 History of cervical cancer Overview (01/28/2013): cervical H/O scoliosis Resolved Problems Problem Noted Date Diagnosed Date Resolved Date Carpal tunnel syndrome of right wrist 09/14/2013 04/30/2019 Immunizations Immunization Administration Dates Next Due Hepatitis B Vaccine 11/28/1995 Influenza Seasonal Unspecified Formulation IM ,04/04/1998 Family History Medical History Relation Name Comments Healthy Father Asthma Maternal Grandfather Diabetes Maternal Grandfather Heart Disease Maternal Grandfather Kidney Disease Maternal Grandfather Liver Disease Maternal Grandfather Other Maternal Grandfather rheumat oid arthritis, osteoarthritis Breast Cancer Maternal Grandmother Cancer Maternal Grandmother cervica l Diabetes Maternal Grandmother Osteoporosis Maternal Grandmother Other Maternal Grandmother rheumat oid arthritis, osteoarthritis, Healthy Mother Unknown Paternal Grandfather Unknown Paternal Grandmother Colon Cancer Neg Hx Relation Name Status Comments Father Alive Maternal Grandfather Maternal Grandmother Alive Mother Alive Paternal Grandfather Paternal Grandmother Social History Tobacco Use Types Packs/Day Years Used Date Smoking Tobacco: Former Cigarettes 1 15 0 07/22/2003 - 07/21/2018 Smokeless Tobacco: Never Tobacco Cessation:Ready to Q uit: No; Counseling Given: Yes Alcohol Use Standard Drinks/Week Comments No 0 (1 standard drink = 0.6 oz pur e alcohol) only rarely Comments No Sex and Gender Information Value Date Recorded Sex Assigned at Not on file Legal Sex Female 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 Gender Identity Not on file Sexual Orientation Not on file Occupation Industry Job Start Date Job End Date Not on file Not on file Not on file Not on file Not on file Not on file Not on file Not on file Not on file Not on file Not on file Not on file Last Filed Vital Signs Vital Sign Reading Time Taken Comments Blood Pressure 120/80 02/12/2020 12:12 PM CDT Pulse 96 02/12/2020 12:12 PM CDT Temperature 36.9 C (98.4 F) 02/12/2020 12:12 PM CDT Respiratory Rate 18 02/12/2020 12:12 PM CDT Oxygen Saturation 99% 02/12/2020 12:12 PM CDT Inhaled Oxygen Concentration - - Weight 72.6 kg (160 lb) 02/12/2020 12:12 PM CDT Height 162.6 cm (5' 4 ) 02/12/2020 12:12 PM CDT Body Mass Index 27.46 02/12/2020 12:12 PM CDT Plan of Treatment Health Maintenance Due Date Last Done Comments HEPATITIS B VACCINES (2 of 3 - 3-dose series) 12/26/1995 11/28/1995 DTAP/TDAP/TD VACCINES (1 - Tdap) 2002 HPV VACCINES (1 - 3-dose SCD M series) 2010 PAP SMEAR 11/22/2020 11/22/2017, 0707/2017, 08/21/2010 CERVICAL CANCER SCREENING 11/22/2022 HPV/Cotest (21-29) 11/22/2022 11/22/2017, 08/21/2010 HPV/Cotest (30-65) 11/22/2022 11/22/2017, 08/21/2010 BREAST CANCER SCREENING 2023 Preventative Visit- Commercial 05/23/2024 0 02/10/2022, 02/26/2021, 02/12/2020, Additional history exists INFLUENZA VACCINE (#1) 2024 , 06/30/2016, 04/04/1998 Procedures Procedure Name Priority Date/Time Associated Diagnosis Comments CERV/VAG CYTO SCREEN PAP W/HPV Routine 11/22/2017 3:13 PM CDT Possible exposure to STD from Last 3 Months or Most Recently Relevant to Health Maintenance Results * CERV/VAG CYTO SCREEN PAP W/HPV (11/22/2017 3:13 PM CDT) PAP INTERP See Separate Results 11/30/2017 11:17 AM CDT [facility] [facility] Genital SWAB OF ENDOCERVIX / Unknown Collection / Unknown 11/22/2017 3:13 PM CDT 11/24/2017 10:10 AM CDT Shireen Duggan PROFESSIONAL DEVELOPMENT DIRECTOR PATHOLOGY/CYTOLOGY ORDERABLES Fi nal Result Performing Organization Address City/State/[facility] Co de Phone Number [facility] CLIA# [id number] [address] [place] [address] from Last 3 Months or Most Recently Relevant to Health Maintenance Insurance [employer] Care Teams Label Printer Relationship Specialty Start Date End Date Arun Beltrán MD [address] [phone] PCP - General Family Practice 04/28/18
[2025-03-25 20:16] VITALS: BP 135/85; PULSE 86; RESP 18; TEMP 36.7; O2SAT 96; BMI 33.1
--- NOTE | 2025-03-25 20:21 | XRR_ITS ---
PROCEDURE INFORMATION: Exam: XR Chest Exam date and time: 03/25/2025 8:28 PM Age: 40 years old Clinical indication: Pain; Chest pressure; Additional info: Chest pain TECHNIQUE: Imaging protocol: Radiologic exam of the chest. Views: 1 view. COMPARISON: CR XR chest 1V portable [id number] 12/03/2023 7:37 PM FINDINGS: Lungs: Clear, symmetrically inflated lungs. Pleural spaces: No pleural effusion. No pneumothorax. Heart/Mediastinum: Cardiac silhouette is normal in size for technique. Bones/joints: Age appropriate. XR/XR chest 1V portable [id number] IMPRESSION: No acute cardiopulmonary abnormality.
[2025-03-25 20:45] LABS: HCG Qualitative Urine. Negative (Negative)
[2025-03-25 21:04] LABS: Glucose Urine UA Negative (Normal); Nitrate Urine Negative (Negative); Specific Gravity, Urine 1.003 (1.005-1.030)
[2025-03-25 21:07] LABS: Hematocrit 42.2 % (36-47); Hemoglobin 14.40 g/dL (11.27-16.99); Mean Corpuscular HGB Conc 34.1 g/dL (30-55); Mean Corpuscular Hemoglobin 31.2 pg (27-33); Mean Corpuscular Volume 91.5 fl (85-98); Nucleated Red Blood Cells % 0 %; Platelet Count 356 10^3/cmm (157-399); Red Blood Count 4.61 10^6/uL (3.85-5.65); White Blood Count 10.92 10^3/uL (3.29-11.43)
[2025-03-25 21:08] LABS: Add Urine Microscopic? YES
[2025-03-25 21:25] LABS: Troponin(5th) Baseline < 6 ng/L (0-10)
[2025-03-25 21:37] LABS: Anion Gap 15.2 (5-19); Blood Urea Nitrogen 11 mg/dL (6-20); Calcium 9.4 mg/dL (8.5-10.5); Carbon Dioxide 22 mmol/L (22-29); Chloride 107 mmol/L (98-107); Creatinine Clr Calc Pharmacy 126.0468; Glucose 95 mg/dL (65-115); NT Pro B Type Natriuretic Pept < 36 pg/mL (0-125); Osmolality Calculated 289 mOsm/kg (285-295); Potassium 4.2 mmol/L (3.5-5.1); Sodium 140 mmol/L (136-145)
--- NOTE | 2025-03-25 22:19 | ECG_ITS ---
[facility] Test Date: 2025-03-25 Pat Name: Tripp Villavicencio Department: Room: Gender: Female Appeals Assistant: : 1985 Requested By: Ashley Manzo Order Number: [id number] Obdulia MD: Shannan Torres M.D. Measurements Intervals [place] Rate: 80 P: 60 HI: 201 QRS: 52 QRSD: 83 T: 41 QT: 357 QTc: 412 Interpretive Statements SINUS RHYTHM WITH SINUS ARRHYTHMIA NONSPECIFIC T-WAVE ABNORMALITY Compared to ECG 12/03/2023 19:49:57 No significant changes Electronically Signed On 03-26-2025 22:22:25 STOVE CLEANER by Shannan Torres M.D. [email or web address]
== END 2025-03-25 23:46 | disposition left against medical advice (07) ==
PROVIDERS: Emergency Medicine; Emergency Provider Family Medicine
DX: Z01.89 Encounter for other specified special examinations (principal); Z53.21 Procedure and treatment not carried out due to patient leaving prior to being seen by health care provider; I49.9 Cardiac arrhythmia, unspecified; R94.31 Abnormal electrocardiogram [ECG] [EKG]; R07.9 Chest pain, unspecified
CPT/HCPCS: 36415; 71045; 80048; 81001; 81025; 83880; 84484; 85025; 93005; 99285